=== PATIENT | male | born 1960 | race Asian ===

== ENCOUNTER 2017-09-06 09:15 | Day surgery (SDC) | payer OTHER ==
[~2017-09-06 09:15] MED LIST: Buffered Lidocaine 0.9% SYRIN* 5 ML/SYR SYRINGE INTRADERM ONE; Famotidine IV* 10 MG/ML 2 ML (20 mg) IV ONE
[2017-09-06] MEDS ORDERED: Famotidine IV* 10 MG/ML 2 ML (20 mg) ONE (10:07)
[2017-09-06] MEDS ORDERED: Buffered Lidocaine 0.9% SYRIN* 5 ML/SYR SYRINGE ONE (10:07)
[2017-09-06] MEDS ORDERED: ceFAZolin 2 GM PREMIX (*) 2 GM/50 ML BAG IVPB ONE (10:07)
[2017-09-06] MEDS ORDERED: Ondansetron INJ* 2 MG/ML VIAL IV PRN (10:32)
[2017-09-06] MEDS ORDERED: Naloxone* 0.4 MG/ML 1 ML VIAL IV PRN (10:32)
[2017-09-06] MEDS ORDERED: HYDROmorphone INJ* 1 MG/ML CARPUJECT SYRINGE IV PRN (10:32)
[2017-09-06] MEDS ORDERED: Acetaminophen TAB* 325 MG PO PRN (10:32)
[2017-09-06] MEDS ORDERED: oxyCODONE TAB* 5 MG TAB PO PRN (10:32)
[2017-09-06] MEDS ORDERED: EPINEPHRINE 1 MG/ML 1 ML VIAL ONE (11:06)
[2017-09-06] MEDS ORDERED: Lidocain 1% EPI 1:100,000 * 30 ML MDV ONE (11:06)
[2017-09-06] MEDS ORDERED: Bupivacaine 0.5% SDV PF* 30ML VIAL ONE (11:06)
[2017-09-06] MEDS ORDERED: fentaNYL* 50 MCG/ML 2 ML VIAL (100 MCG VIAL) ONE ×2 (11:15→13:12)
[2017-09-06] MEDS ORDERED: Midazolam* 1 MG/ML 5 ML VIAL (5 MG) ONE (11:15)
[2017-09-06] MEDS ORDERED: Ketorolac INJ* 30 MG/ML 1 ML VIAL ONE (11:28)
[2017-09-06] MEDS ORDERED: Dexamethasone IV* 4 MG/ML 1 ML (4 MG) ONE (11:28)
[2017-09-06] MEDS ORDERED: Propofol* 10 MG/ML 20 ML BTL IV PUSH ONE (11:28)
[2017-09-06] MEDS ORDERED: Lidocaine 2% PF * 5 ML VIAL ONE (11:28)
[2017-09-06] MEDS ORDERED: DiMENhydriNATE IV* 50 MG/ML VIAL ONE (11:28)
[2017-09-06 14:44] VITALS: BP 166/95
--- NOTE | 2017-09-09 00:34 | OP ---
DATE OF OPERATION: 09/06/17 - SDS DATE OF : 58 SURGEON: Kevin Severino MD CONDUIT INSTALLER: SELENE Jean. A physician intellectual property legal assistant was required for the length of the procedure for assistance with manipulation of the knee, instrumentation and closure. ANESTHESIOLOGIST: Carito Medina MD ANESTHESIA: General anesthesia, local anesthesia with 25 cc of 0.5% Marcaine without epinephrine. PRE-OP DIAGNOSES: 1. Left knee medial meniscus tear. 2. Left knee osteochondral lesion, medial femoral condyle. 3. Left knee mild osteoarthritis. POST-OP DIAGNOSES: 1. Left knee medial meniscus tear. 2. Left knee chondral injury, medial femoral condyle. 3. Left knee mild osteoarthritis. OPERATIVE PROCEDURE: 1. Left knee arthroscopic partial medial meniscectomy. 2. Left knee arthroscopic chondroplasty, medial femoral condyle. 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 See my preoperative clinic note for full details, but the patient responded insufficiently to a full array of nonoperative management including cortisone injection, home exercises, physical therapy, NSAIDs. The patient was missing work because of the pain and the pain was continuing to bother him with activities of daily living. The patient opted for surgery. Preoperative MRI showed a medial meniscus tear, complex. It also showed some chondral injury with subchondral bony edema in the medial femoral condyle. X-rays had showed some mild joint space narrowing of the medial lateral compartments. Using a packaging mechanic in the office, we discussed with the patient risks and potential complications of surgery including bleeding, infection, nerve or blood vessel injury, knee pain, stiffness, osteoarthritis. Given the patient's mild osteoarthritis and subchondral edema, there were possibly limits to the improvement with partial medial meniscectomy. Preoperatively, considered possible treatments for articular cartilage injury to the medial femoral condyle, I have decided on chondroplasty versus microfracture even if a full thickness injury was present. Because of the patient's age, presence of arthritis, mild, and the patient's presumed difficulty with being nonweightbearing for six weeks should that be needed. TOURNIQUET TIME: 23 minutes at 300 mmHg. QQNT-GJ-JRJD TIME: 21 minutes. ANTIBIOTICS: Ancef 2 g IV. IV FLUIDS: 700 cc crystalloid. ARTHROSCOPY FLUID: Not recorded volume. SPECIMEN: None. IMPLANTS: None. COMPLICATIONS: None. ESTIMATED BLOOD LOSS: Minimal. DESCRIPTION OF PROCEDURE: The patient signed a written consent in the preoperative holding with the use of a packaging mechanic. Operative extremity was marked in preoperative holding. The patient was taken back to the operating room and placed supine on operating room table. The patient was sedated and intubated. Tourniquet was placed about the proximal left thigh. A circumferential thigh gonzalez was placed about the distal left thigh. Left knee and lower extremity were prepped and draped. Surgical time-out was performed. Esmarch was applied and tourniquet was elevated to 300 mmHg. I established an anterolateral arthroscopy portal. I commenced my diagnostic arthroscopy. No patellofemoral articular cartilage lesions were encountered. I next dropped down to the medial compartment. Immediately, a soft, complex shaped medial meniscus tear about the posterior body and posterior horn. There was a one clear flap most anteriorly that might displace the most in the patient , a small parrot beak tear, there was also some fraying of the articular cartilage, some softening and fraying of that. I continued my diagnostic arthroscopy, I moved to the intercondylar notch. I debrided some synovitis anteriorly but the ACL and PCL were intact. Lateral compartment showed no articular cartilage or meniscus injury. I returned to the medial compartment. I debrided the meniscus tear back to a stable rim of tissue. I did so, working through the anteromedial and then the anterolateral portal. There was one spot about the posterior body to the posterior horn junction, as seen on MRI, that was close to full thickness. I also addressed the articular cartilage at the medial femoral condyle. I debrided with my arthroscopic shaver some areas of presumed loosening of the articular cartilage. I probed. There was softening but there was no area of complete thickness articular cartilage loss. There were areas of partial thickness articular cartilage loss. While it did generally not appear healthy, the grade of the articular cartilage injury I would describe it as grade 1 to 3 about the central aspect of the medial femoral condyle, weightbearing. I debrided this area and probed it from both the anterolateral and anteromedial portals. I returned to the patellofemoral compartment where I found no articular cartilage lesions or any loose bodies in the suprapatellar pouch nor in the popliteal hiatus. I removed the instruments and fluid from the knee. I closed the skin incisions with [id number]-[id number] stitches using nylon 4-0 suture. I injected 25 cc of 0.5% Marcaine without epinephrine in the subcutaneous tissues about the skin incisions. Xeroform, 4x4s, ABD, Juan C bandage from foot to proximal thigh. Icing unit was applied over the knee. The tourniquet was dropped. The patient was extubated and transferred to the PACU. DISPOSITION: The patient was discharged home with prescription for Percocet as well as a prescription for aspirin b.i.d. x 2 weeks for DVT prophylaxis. The patient will follow up with me in 10 to 14 days postoperatively. The patient was given wound care instructions. The patient will start physical therapy immediately as soon as he can postoperatively to reestablish range of motion and strengthening of that left knee. [id number] #: [id number] MTDD
== END 2017-09-06 15:09 | disposition home or self-care (01) ==
LOC: OR 09:15
PROVIDERS: ATTEND Orthopaedic Surgery
DX: S83.242A Other tear of medial meniscus, current injury, left knee, initial encounter (principal); M25.862 Other specified joint disorders, left knee; M25.562 Pain in left knee; M17.12 Unilateral primary osteoarthritis, left knee; Z72.0 Tobacco use; N40.0 Benign prostatic hyperplasia without lower urinary tract symptoms; W19.XXXA Unspecified fall, initial encounter; Y92.9 Unspecified place or not applicable
CPT/HCPCS: J0690; J1100; J1240; J1885; J2250; J2704; J3010

== ENCOUNTER 2018-07-10 10:18 | Emergency (ER) | payer OTHER ==
--- OUTSIDE RECORDS SUMMARY | 2018-07-10 10:25 | XMS REPORT | Continuity of Care Document ---
:1960 External Reference #:[id number] Author Name JimenezIsaiasSol Care Team Providers Name Role Phone Isael Hill MD Primary Care Physician Unavailable Payers Date Identification Numbers Payment Provider Subscriber Policy Number: [id number] [employer] Jeffrey [employer] Group Number: [id number] [address] PayID: [id number] [place] [address] Effective: 2017 Policy Number: [id number] Atiya Nova Onset: 2017 Group Name: [employer] [phone] [address] PayID: [place] [address] Advance Directives Description No Information Available Problems Date Description Provider Status Onset: 05/23/2017 Current tear of medial cartilage Kevin Severino MD Active AND/OR meniscus of knee Onset: 05/23/2017 Localized, primary osteoarthritis Kevin Severino MD Active Family History Description No Information Available Social History Type Date Description Comments Sex Unknown Occupation Currently Working ETOH Use Denies alcohol use Tobacco Use Start: Unknown Patient has never smoked Smoking Status Reviewed: 06/26/18 Patient has never smoked Exercise Type/Frequency Exercises sporadically Allergies, Adverse Reactions, Alerts Description No Known Drug Allergies Medications Medication Date Status Form Strength Qnty SIG Indications Ordering Provider Aleve / Active Capsules 220mg 1-2 by Unknown 0000 mouth twice a day as needed Naproxen 10/08/ Hx Tablets 500mg 30tabs take one Kevin Sanchez 2017 - tab by [facility], 10/30/ mouth 2017 twice a day with food Aspirin Ec 09/08/ Hx Tablets DR 325mg 28tabs 1 tablet Kevin Sanchez 2017 - by mouth Mere, 06/25/ twice 2018 daily for 14 days Percocet 09/06/ Hx Tablets 5-325mg 30tabs 1 - 2 Kevin F 2018 - tabs by [facility]re, 09/15/ mouth 2017 every 4 - 6 hours as needed for pain. Naproxen DR 07/08/ Hx Tablets DR 500mg 90tabs take 1 Kevin F 2018 - tab [facility]re, 03/10/ every 12 MD 2018 hours x 2 weeks. then as needed No Active 05/23/ Hx Unknown Medications 2017 - 2017 Cyclobenzaprine / Hx Tablets 5mg take one Unknown HCL 0000 - tablet 05/29/ by mouth 2018 every 8 hours prn. may take a second tablet if first not effetive . Allopurinol / Hx Tablets 100mg 1 by Unknown 0000 - mouth 05/29/ 2018 day Medications Administered in Office Medication Date Status Form Strength Qnty SIG Indications Ordering Provider Depomedrol Administered Injection Kevin F 40MG 019 MD Mere Depomedrol Administered Injection Frances 40MG 018 MARIA A Rollins Depomedrol Administered Injection Kevin F 40MG 018 MD Mere Immunizations Description No Information Available Vital Signs Date Vital Result Comment 06/26/2018 9:05am Height 62 inches 5'2" Weight 155.00 lb Heart Rate 70 /min BP Systolic 142 mmHg BP Diastolic 80 mmHg Respiratory Rate 12 /min Pain Level 3 BMI (Body Mass Index) 28.3 kg/m2 05/29/2018 3:12pm Height 62 inches 5'2" Weight 150.00 lb BP Systolic 150 mmHg BP Diastolic 100 mmHg Pain Level 6 BMI (Body Mass Index) 27.4 kg/m2 05/15/2018 2:18pm Height 62 inches 5'2" Heart Rate 76 /min BP Systolic 150 mmHg BP Diastolic 92 mmHg Body Temperature 98.5 F Pain Level 6 03/11/2018 9:57am Height 62 inches 5'2" Weight 150.00 lb BP Systolic 148 mmHg BP Diastolic 86 mmHg Respiratory Rate 18 /min Pain Level 5 BMI (Body Mass Index) 27.4 kg/m2 01/02/2018 11:14am Heart Rate 92 /min BP Systolic 156 mmHg BP Diastolic 86 mmHg Respiratory Rate 18 /min Pain Level 4 12/05/2017 10:32am Height 62 inches 5'2" Heart Rate 96 /min BP Systolic 130 mmHg BP Diastolic 90 mmHg Body Temperature 98.3 F Pain Level 4 10/31/2017 8:45am Height 62 inches 5'2" Weight 146.00 lb Heart Rate 79 /min Respiratory Rate 16 /min Pain Level 2 BMI (Body Mass Index) 26.7 kg/m2 10/08/2017 7:55am Height 62 inches 5'2" Weight 146.00 lb BP Systolic 124 mmHg BP Diastolic 80 mmHg Respiratory Rate 18 /min Pain Level 2 BMI (Body Mass Index) 26.7 kg/m2 09/16/2017 2:16pm Height 62 inches 5'2" Weight 146.00 lb Heart Rate 80 /min BP Systolic 148 mmHg BP Diastolic 78 mmHg Respiratory Rate 16 /min Pain Level 7 BMI (Body Mass Index) 26.7 kg/m2 08/13/2017 10:42am Height 62 inches 5'2" Weight 146.00 lb BP Systolic Sitting 142 mmHg BP Diastolic Sitting 90 mmHg Respiratory Rate 16 /min Body Temperature 98.2 F Pain Level 6 BMI (Body Mass Index) 26.7 kg/m2 07/18/2017 1:06pm Height 62 inches 5'2" Weight 146.00 lb Heart Rate 69 /min Respiratory Rate 16 /min Pain Level 2 BMI (Body Mass Index) 26.7 kg/m2 07/08/2017 1:02pm Height 62 inches 5'2" Weight 146.00 lb Heart Rate 67 /min Respiratory Rate 16 /min Pain Level 2 BMI (Body Mass Index) 26.7 kg/m2 05/27/2017 1:03pm Height 62 inches 5'2" Heart Rate 81 /min BP Systolic 132 mmHg BP Diastolic 80 mmHg Respiratory Rate 16 /min Body Temperature 97.8 F Pain Level 7 05/23/2017 10:05am Height 62 inches 5'2" Weight 146.00 lb BP Systolic 142 mmHg BP Diastolic 84 mmHg Respiratory Rate 15 /min Pain Level 10 BMI (Body Mass Index) 26.7 kg/m2 Results Description No Information Available Procedures Date Code Description Status 05/29/201878001 Inject/Drain Joint/Bursa Major W/O US Completed 12/05/2017 Inject/Drain Joint/Bursa Major W/O US Completed 10/28/2017 87793 Colonoscopy Flexible W/Biopsy Completed 10/28/2017 23788175 Colonoscopy Completed 09/06/2017 97197 Arthroscopy,Knee,Meniscectomy Medial Or Lateral Completed 09/06/2017 70755 Arthroscopy,Knee,Meniscectomy Medial Or Lateral Completed 05/23/2017 78597 Inject/Drain Joint/Bursa Major W/O US Completed Encounters Type Date Location Provider Dx Diagnosis Office Visit 05/29/2018 Orthopedic Kevin Sanchez [id number] Complex tear of 3:[facility] Severino MD medial mensc, current injury, l knee, subs M17.12 Unilateral primary osteoarthritis, left knee Office Visit 05/15/2018 1:45p Orthopedic Kevin Sanchez [id number] Complex tear [facility] of medial [facility] mensc, current injury, l knee, subs M25.562 Pain in left knee M17.12 Unilateral primary osteoarthritis, left knee Office Visit 03/11/2018 10:00a Orthopedic Kevin Sanchez [id number] Complex tear [facility] of medial [facility] mensc, current injury, l knee, subs Office Visit 01/02/2018 11:30a Orthopedic Kevin Sanchez [id number] Oth tear of [facility] medial [facility] meniscus, current injury, left knee, subs [id number] Complex tear of medial mensc, current injury, l knee, subs Plan of Treatment Future Appointment(s):07/04/2018 8:45 am - MAR[facility] A Ramirez [facility]06/26/2018 - Kevin Severino [id number] Complex tear of medial meniscus, current injury, left knee,Follow up:Follow up: in 1 week with a PA for injection #2 of NhjoncwQ89.12 Unilateral primary osteoarthritis, left kneeM25.562 Pain in left knee
[2018-07-10 11:09] VITALS: BP 146/94
--- NOTE | 2018-07-10 11:20 | UC ---
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 Pain started about 4 weeks ago, but worsened considerably with the above associated sx last week. Denies known external inciting issue(s). Sleeps on a regular mattress. Unknown if fever - has been taking around the clock naproxen for Left knee pain (scheduled for upcoming knee surgery), also norco for knee pain. These medications have not helped neck pain. Came to [facility] today because he couldn't stand the pain any more. No h/a, sob / cp / palpitations. No GI issues. no b/b issues reported. No rash. No vis / aud issues reported. - History of Current Complaint Chief Complaint: UCUpperExtremity Stated Complaint: L ARM COMPLAINT Hx Obtained From: Patient, Family/Bar Useful Or Busser, Manager Scientific Pain Intensity: 5 - Allergy/Home Medications Allergies/Adverse Reactions: Allergies Allergy/AdvReac Type Severity Reaction Status Date / Time No Known Allergies Allergy Verified 07/10/18 11:24 PMH/Surg Hx/FS Hx/Imm Hx Previously Healthy: No - see hpi - Surgical History Surgical History: Yes Surgery Procedure, Year, and Place: LEFT KNEE SURGERY - Family History Known Family History: Negative: Cardiac Disease, Hypertension, Diabetes - Social History Alcohol Use: None Substance Use Type: None Smoking Status (MU): Former Smoker Type: Cigarettes Amount Used/How Often: 1 pack every 3 days for 30 years Review of Systems All Other Systems Reviewed And Are Negative: Yes Constitutional: Positive: Other - see hpi Skin: Positive: Other - see hpi Eyes: Positive: Other - see hpi ENT: Positive: Other - see hpi Respiratory: Positive: Other - see hpi Cardiovascular: Positive: Other - see hpi Gastrointestinal: Positive: Other - see hpi Genitourinary: Positive: Other - see hpi Motor: Positive: Other - see hpi Neurovascular: Positive: Other - see hpi Musculoskeletal: Positive: Other: - see hpi Neurological: Positive: Other - see hpi Psychological: Positive: Negative Is Patient Immunocompromised?: No Physical Exam Triage Information Reviewed: Yes Appearance: Well-Nourished Vital Signs: Initial Vital Signs Temp 98.4 F 07/10/18 11:03 Pulse 79 07/10/18 11:03 Resp 16 07/10/18 11:03 BP 146/94 07/10/18 11:03 Pulse Ox 98 07/10/18 11:03 Vital Signs Reviewed: Yes Eye Exam: Normal ENT Exam: Normal - grossly normal. MMM. Neck exam: Other Respiratory: Positive: Lungs clear, Normal breath sounds, No respiratory distress, No accessory muscle use Cardiovascular: Positive: RRR, Pulses Normal, Brisk Capillary Refill Abdominal Exam: Normal Abdomen Description: Positive: Nontender Musculoskeletal Exam: Other - Tender from mid neck to upper thoracic spine, approx c4-4 -> T6-8. Tender part Left lateral spine area. + upper back and neck spasm. Ax N. LT - + both sides, but pt subjectively reports that he feels it stronger in the R shoulder. + dysesthesia L fingers x 5, able to do "ok" index and 5th fingers both sides ok. Elbow flexion and extension 4+ Left , 5 Right. Palpable R/u pulses bilat. R / BR 1+ bilat. 2+ R knee, did not test L knee d/t pain (pt request). Able to ambulate ok. Neurological Exam: Other Psychological Exam: Normal - conversing easily and appropriately. 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 Skin Exam: Normal - no visible or reported rash. Course/Dx - Course Course Of Treatment: Reviewed recent reports in [facility] as avaiable. + knee issues. However, no recent neck imaging / testing. Today with progressively worse LUE weakness and dysesthesias, in the setting of severe neck pain, not improved with nsaid / norco (or similar). Unk if hx fever d/t antipyretic effect of nsaid. Declines cervical collar. Will send to ED, he and conveyor installer decline EMS, conveyor installer will drive. I called ED, spoke with SELENE Stovall, at time of pt d/c. Questions as posed answered to the best of my ability. - Diagnoses Provider Diagnosis: Neck pain, Weakness Discharge - Sign-Out/Discharge Documenting (check all that apply): Patient Departure All imaging exams completed and their final reports reviewed: No Studies - Discharge Plan Condition: Guarded Disposition: HOME-RECOMMEND TO ED Patient Education Materials: Weakness (ED), Acute Neck Pain (ED) Referrals: Isael Hill MD [Primary Care Provider] - Additional Instructions: Please go to the Emergency Department. Stop and call 911 if problems en route. Follow up with you primary care physician, as soon as possible. - Billing Disposition and Condition Condition: GUARDED Disposition: Home-Recommend to ED
== END 2018-07-10 11:59 | disposition home health service (06) ==
LOC: UCEAST 10:18
DX: M54.2 Cervicalgia (principal); R53.1 Weakness; R20.8 Other disturbances of skin sensation; M25.562 Pain in left knee; Z87.891 Personal history of nicotine dependence
CPT/HCPCS: 99212; G0463

== ENCOUNTER → 2018-07-10 14:17 | Emergency (ER) | payer OTHER ==
[~2018-07-10 14:17] MED LIST changes: -Buffered Lidocaine 0.9% SYRIN* 5 ML/SYR SYRINGE INTRADERM ONE; -Famotidine IV* 10 MG/ML 2 ML (20 mg) IV ONE; +Ketorolac INJ* 30 MG/ML 1 ML VIAL IM ONE; +predniSONE TAB* 20 MG PO ONE
--- NOTE | 2018-07-10 15:20 | ED ---
Back Pain - HPI Summary HPI Summary: A 57 y/o male presents to [facility] with a chief complaint of left sided back pain radiating to his shoulder for a week. He also notes numbness in his left arm. He rates his pain as a 5/10 in severity. The patient was at and was sent to the ED for further workup. SHx: knee surgery in July 2017. - History of Current Complaint Chief Complaint: EDBackInjuryPain Stated Complaint: BACK PAIN/LEFT ARM PAIN PER PT Time Seen by Provider: 07/10/18 15:03 Hx Obtained From: Patient Onset/Duration: Sudden Onset, Lasting Days, Still Present Onset/Duration: Started Days Ago, Still Present Timing: Constant Back Pain Location: Radiates To - left shoulder and left arm Severity Initially: Moderate Severity Currently: Moderate Pain Intensity: 5 Pain Scale Used: 0-10 Numeric Character: Unable to Describe Aggravating Symptom(s): Nothing Alleviating Symptom(s): Nothing Associated Signs And Symptoms: Positive: Numbness. Negative: Fever - Allergies/Home Medications Allergies/Adverse Reactions: Allergies Allergy/AdvReac Type Severity Reaction Status Date / Time No Known Allergies Allergy Verified 07/10/18 14:26 Home Medications: Home Medications Acetaminophen [Tylenol] 325 - 650 mg PO Q6H PRN 07/10/18 [History Confirmed ] PMH/Surg Hx/FS Hx/Imm Hx Endocrine/Hematology History: Denies: Hx Diabetes, Hx Thyroid Disease Cardiovascular History: Denies: Hx Hypertension, Hx Pacemaker/ICD Respiratory History: Denies: Hx Asthma, Hx Chronic Obstructive Pulmonary Disease (COPD) GI History: Denies: Hx Ulcer History: Reports: Other Problems/Disorders - BPH - followed by dr hill Denies: Hx Renal Disease Musculoskeletal History: Reports: Hx Arthritis, Other Musculoskeletal History - left knee meniscus tear Sensory History: Reports: Hx Contacts or Glasses - readers Denies: Hx Hearing Aid Opthamlomology History: Reports: Hx Contacts or Glasses - readers Psychiatric History: Denies: Hx Panic Disorder - Surgical History Surgery Procedure, Year, and Place: LEFT KNEE SURGERY Hx Anesthesia Reactions: No - never had surgery Infectious Disease History: No Infectious Disease History: Denies: Hx Clostridium Difficile, Hx Hepatitis, Hx Human Immunodeficiency Virus (HIV), Hx of Known/Suspected MRSA, Hx Shingles, Hx Tuberculosis, History Other Infectious Disease, Traveled Outside the [place] in Last 30 Days - Family History Known Family History: Negative: Cardiac Disease, Hypertension, Diabetes - Social History Alcohol Use: None Substance Use Type: Reports: None Smoking Status (MU): Former Smoker Type: Cigarettes Amount Used/How Often: 1 pack every 3 days for 30 years Review of Systems Negative: Fever Positive: Arthralgia - left shoulder pain, Myalgia - left back pain Positive: Numbness - left arm All Other Systems Reviewed And Are Negative: Yes Physical Exam - Summary Physical Exam Summary: Appearance: The patient is well-nourished in no acute distress and in no acute pain. Skin: The skin is warm and dry and skin color reflects adequate perfusion. HEENT: The head is normocephalic and atraumatic. The pupils are equal and reactive. The conjunctivae are clear and without drainage. Nares are patent and without drainage. Mouth reveals moist mucous membranes and the throat is without erythema and exudate. The external ears are intact. The ear canals are patent and without drainage. The tympanic membranes are intact. Neck: The neck is supple with full range of motion and non-tender. There are no carotid bruits. There is no neck vein distension. Respiratory: Chest is non-tender. Lungs are clear to auscultation and breath sounds are symmetrical and equal. Cardiovascular: Heart is regular rate and rhythm. There is no murmur or rub auscultated. There is no peripheral edema and pulses are symmetrical and equal. Abdomen: The abdomen is soft and non-tender. There are normal bowel sounds heard in all four quadrants and there is no organomegaly palpated. Musculoskeletal: Tender rhomboid area and trapezius. Good strength. Extremities are non-tender with full range of motion. There is good capillary refill. There is no peripheral edema or calf tenderness elicited. Neurological: Patient is alert and oriented to person, place and time. The patient has symmetrical motor strength in all four extremities. Cranial nerves are grossly intact. Deep tendon reflexes are symmetrical and equal in all four extremities. Psychiatric: The patient has an appropriate affect and does not exhibit any anxiety or depression. Triage Information Reviewed: Yes Vital Signs On Initial Exam: Initial Vitals Temp Pulse Resp BP Pulse Ox 98.6 F 85 16 165/95 98 07/10/18 14:20 07/10/18 14:20 07/10/18 14:20 07/10/18 14:20 07/10/18 14:20 Vital Signs Reviewed: Yes Diagnostics - Vital Signs Vital Signs Temp Pulse Resp BP Pulse Ox 07/10/18 14:20 98.6 F 85 16 165/95 98 - Laboratory Lab Statement: Any lab studies that have been ordered have been reviewed, and results considered in the medical decision making process. - CT Cervical spine CT Interpretation Completed By: Radiologist Summary of CT Findings: 1. STRAIGHTENING AND REVERSAL OF THE NORMAL CERVICAL LORDOSIS. 2. THERE IS MILD TO MODERATE CERVICAL SPONDYLOSIS WITH SUGGESTION OF DISC PROTRUSIONS AT. THE C4-C5 AND C6-C7 LEVELS WHICH ARE NOT WELL-DEFINED ON THE CT IMAGES. CONSIDER [facility] FOR FURTHER EVALUATION. ED physician has reviewed this imaging report. Re-Evaluation - Re-Evaluation First Eval Re-Evaluation Time: 16:35 Change: Improved Comment: Discussed results. Pt is ready for DC. Back Pain Course/Dx - Course Course Of Treatment: Mr. Nova presented with very significant pain in his left arm and some numbness but no motor difficulties. He denied any other involvement. He was very tender in his rhomboid area and trapezius and a CT of his neck showed diffuse disc disease. He will likely need an MRI scan; I'm going to try to give him some symptomatic relief with steroids and anti- inflammatories. He did get some relief with anti-inflammatories a here in the ED. I recommended close follow-up with his PCP. - Diagnoses Provider Diagnoses: Cervical radiculopathy Discharge - Sign-Out/Discharge Documenting (check all that apply): Patient Departure - DC Patient Received Moderate/Deep Sedation with Procedure: No - Discharge Plan Condition: Stable Disposition: HOME Prescriptions: methylPREDNISolone [Medrol Dosepak 4 MG*] 4 mg PO .SEE FRED INSTRUCTION #1 tab Patient Education Materials: Cervical Radiculopathy (ED) Referrals: Isael Hill MD [Primary Care Provider] - (2-3 days ) Additional Instructions: Recommend Naprosyn. Follow up with Dr. Hill for consideration of MRI scan. - Billing Disposition and Condition Condition: STABLE Disposition: Home - Attestation Statements Document Initiated by Scribe: Yes Documenting Scribe: Adam Wiggins Provider For Whom Scribe is Documenting (Include Credential): Renard Davis MD Scribe Attestation: I, Adam Wiggins, scribed for Renard Davis MD on 07/10/18 at 1854. Scribe Documentation Reviewed: Yes Provider Attestation: The documentation as recorded by the scribe, Adam Wiggins accurately reflects the service I personally performed and the decisions made by me, Renard Davis MD Status of Scribe Document: Viewed
[2018-07-10 16:45] VITALS: BP 131/72
== END | disposition home or self-care (01) ==
LOC: ED 14:17
DX: M54.12 Radiculopathy, cervical region (principal); Z87.891 Personal history of nicotine dependence
CPT/HCPCS: 72125; 96372; 99282; J1885

== ENCOUNTER 2018-10-22 07:30 | Inpatient (IN) | payer OTHER ==
--- NOTE | 2018-10-13 16:56 | HP ---
PREOPERATIVE HISTORY AND PHYSICAL: DATE OF ADMISSION: 10/29/18 DATE OF OFFICE VISIT/ENCOUNTER: 10/09/18 ATTENDING SURGEON: Kevin Severino MD.* (DICTATED BY SELENE COLEMAN) PROCEDURE: Left knee medial unicompartmental knee arthroplasty using NAVIO. HISTORY OF PRESENT ILLNESS: This is a 58-year-old male who has medial compartment degenerative changes of his left knee. He speaks Laotian. In August 2017, he underwent a left knee arthroscopic partial medial meniscectomy and chondroplasty. Over the past year, he has failed conservative treatment including cortisone injections and physical therapy as well as viscosupplementation. Unfortunately, none of these previous treatments have helped his knee pain. 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 This is a Workers Comp case. Because previous arthroscopic surgery and other conservative measures have failed, the patient has now consented to proceed with surgical intervention. He is scheduled to undergo a left knee medial unicompartmental knee arthroplasty using NAVIO. His primary care physician is Dr. Hill and he will get medical clearance prior to proceeding with surgery. PAST MEDICAL HISTORY: 1. Gout. 2. Osteoarthritis. PAST SURGICAL HISTORY: Left knee arthroscopy. CURRENT MEDICATIONS: 1. Aleve 220 mg b.i.d. p.r.n. 2. Tylenol p.r.n. ALLERGIES: No known drug allergies. FAMILY MEDICAL HISTORY: Noncontributory. 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 He is a former smoker. He quit 1 year ago; prior to that, he smoked for 15 years. He went through a pack every 3 days. He denies recreational drug use and does not drink alcohol. REVIEW OF SYSTEMS: Negative for general, cephalic, cardiovascular, respiratory , GI, , other musculoskeletal, integumentary, endocrine, neurologic and hematologic symptoms. Infectious Disease: Negative for MRSA, hepatitis C, and HIV. PHYSICAL EXAMINATION GENERAL: Well-developed, well-nourished 58-year-old male, in no acute distress. VITAL SIGNS: Height 5 feet 2 inches, weight 150 pounds. Pulse rate 76, blood pressure 138/90. HEENT: Normocephalic, atraumatic. Pupils are equal, round, and reactive to light and accommodation. Extraocular movements are intact. Throat is clear. NECK: Supple. No palpable lymph nodes. CARDIOVASCULAR: Regular rate and rhythm. S1, S2. No murmurs, rubs, or gallops. No edema. PULMONARY: Lungs are clear to auscultation bilaterally. No wheezes, rales, or rhonchi. ABDOMEN: Positive bowel sounds, soft and nontender. NEUROLOGIC: Alert and oriented x3. Cranial nerves II through XII are intact. Sensation is intact to light touch. MUSCULOSKELETAL: The left knee exam shows a mild joint effusion. He has passive range of motion from 0 to 130 degrees of flexion. Medial knee pain with terminal extension and flexion. Positive medial joint line tenderness to palpation. Positive medial pain with Dillan's testing. No pain or increased laxity with ligamentous stress testing. Neurovascular function is intact. IMAGING STUDIES: X-ray and MRI of the left knee showed degenerative changes in the medial compartment, but no clear degenerative changes of significance in the patellofemoral or lateral compartment. IMPRESSION: Left knee medial compartment osteoarthritis. PLAN: The patient is scheduled to undergo a left knee medial unicompartmental knee arthroplasty using NAVIO with Dr. Severino on 10/29/18. He will return to the office 2 weeks postoperative for followup and suture removal. Risks and benefits of surgery were reviewed with the patient via Dr. Severino and all of their questions were answered. SELENE COLEMAN [id number]/[facility] #: [id number] [place]
[2018-10-28] MEDS ORDERED: Buffered Lidocaine 1% SYRIN* 1 ML/SYRINGE INTRADERM ONE (11:34)
[2018-10-29] MEDS ORDERED: Tranexamic Acid 1,000 MG in NS 0.9% 50 ML* (outpatient use) IV SCH ×2
[2018-10-29] MEDS ORDERED: Lactated Ringers 1000 ML Bag* 1,000 ML IV SCH (06:00)
[2018-10-29] MEDS ORDERED: Dexamethasone IV* 4 MG/ML 1 ML (4 MG) IV SLOW PU ONE (06:00)
[2018-10-29] MEDS ORDERED: Famotidine IV* 10 MG/ML 2 ML (20 mg) IV ONE (06:00)
[2018-10-29] MEDS ORDERED: Gabapentin CAP(*) 300 MG PO ONE (06:00)
[2018-10-29] MEDS ORDERED: Acetaminophen IV 1GM/100ML * 1,000 MG/100 ML VIAL IVPB ONE (06:00)
[2018-10-29] MEDS ORDERED: celeCOXIB CAP* 200 MG PO ONE (06:00)
--- OUTSIDE RECORDS SUMMARY | 2018-10-29 07:14 | XMS REPORT | Continuity of Care Document ---
:1960 External Reference #:[id number] Author Name Isael Hill M.D. 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 Onset: 10/10/2018 Adult health examination Isael Hill M.D. Onset: 09/19/2017 Essential hypertension Isael Hill M.D. Onset: 09/19/2017 Encounter for other preprocedural Isael Hill M.D. Onset: 08/24/2017 examination Chest pain Isael Hill M.D. Onset: 08/12/2017 Knee pain Isael Hill M.D. Onset: 08/12/2017 Chronic gouty arthritis Isael Hill M.D. Onset: 08/12/2017 Pain in limb Isael Hill M.D. Onset: 08/12/2017 Gout Isael Hill M.D. Onset: 08/02/2017 Benign prostatic hypertrophy without outflow Isael Hill M.D. Onset: obstruction Degenerative joint disease involving Isael Hill M.D. Onset: 04/08/2015 multiple joints Family History Date Family Member(s) Observation Comments General no colon or prostate cancer Father Hypertension Father Cerebrovascular Accident (CVA) age 76 Social History Type Date Description Comments Sex Unknown [facility] [place] Tobacco Use Start: Unknown End: Former Cigarette Smoker 1/2 Pack Daily Smoking Status Reviewed: 09/30/17 Former Cigarette Smoker 1/2 Pack Daily ETOH Use Social Alcohol Tobacco Use Start: Unknown Patient is a current smoker, smokes every day Allergies, Adverse Reactions, Alerts Description No Known Drug Allergies Medications Active Medications SIG Qnty Indications Ordering Provider Date No Active Medications Unknown 10/10/2018 History Medications Medrol as directed 1units Tom Mittal 07/28/2018 - 4mg TBPK MD Amanda 10/10/2018 Gabapentin 1-2 by mouth 120caps M50.10 Kelsy Marshall 07/18/2018 - 300mg Capsules three times CHARU Saenz 10/10/2018 daily for Daytime Pain Meloxicam 1 by mouth every 60tabs M50.10 Kelsy Marshall 07/18/2018 - 15mg Tablets day until pain CHARU Saenz 10/10/2018 resolves Oxycodone-Acetaminophen 1-2 tab by mouth 20tabs M50.10 Kelsy Marshall 2018 - every 6 hours as CHARU Saenz 10/10/2018 5-325mg Tablets needed for severe pain Zanaflex take one by 30caps M54.9 Kelsy Marshall 05/14/2018 - 4mg Capsules mouth 3 times CHARU Saenz 07/18/2018 daily as needed for pain Diclofenac Sodium take 1 tablet by 30tabs M54.9 Kelsy Marshall 05/14/2018 - 50mg mouth three CHARU Saenz 07/18/[address] times a day as needed Magic Mouthwash 1/3 liquid 4Oz K13.79 Marianela 01/29/2018 - DONNY Gonzalez 07/18/2018 (12.5mg/5mL) 1/3 mom 1/3 viscous lidocaine (2%); swish/spit 2.5-5mL q 4 hrs prn pain Cyclobenzaprine HCL take 1-2 tablets 45tabs Radha Ann 09/30/2017 - 5mg by mouth at CHARU Carter 11/02/2017 Tablets night as needed for chest pain Allopurinol 1 by mouth every 90tabs Isaelmarium Goddard 09/19/2017 - 100mg Tablets day Manoj Hill 07/28/2018 Note should be out of Isael Goddard 08/12/2017 - work until Manoj Hill 08/24/2017Saturday08/19/17 Note out of work Isael Goddard 08/02/2017 - until Saturday Manoj Hill 08/24/2017 08/06/17 Naproxen take one by 30tabs M79.67 Isael Goddard 07/31/2017 - 500mg Tablets mouth twice 1 Manoj Hill 09/19/2017 daily as needed Meloxicam 1 by mouth every 30tabs M25.56 Kelsy Marshall 05/22/2017 - 15mg Tablets day until pain 2 CHARU Saenz 08/01/2017 resolves Out Of Work out of work Karen Grey, 01/03/2016 - since Dec.26 [employer] 04/24/2017 due to foot pain; 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 06/14/2008 - 500mg Tablets food x 10 days Manoj Haney 04/08/2015 Medrol Dosepak use as directed 1tabs 784.0 Satnam AToshia 06/14/2008 - 4mg Tablets Manoj Haney 04/08/2015 Augmentin 1 po bid with 20tabs 784.0 Hay A. 05/17/2008 - 500mg Tablets food x 10 days Manoj Haney 06/14/2008 Diclofenac Sodium 1 bid prn w/ Family Medicine 04/27/2008 - 75mg food for pain [facility] 05/17/[address] Sri King Vicodin 1-2 po q4-6h prn [facility] 04/27/2008 - 5-500mg [facility] 05/17/2008 Fernando Amoxicillin 1 po bid X10 [facility] 04/27/2008 - 875mg Tablets [facility] 04/27/2008 Fernando Biaxin 1 po bid 20tabs Jose Carlos T. Midura, 04/27/2008 - 500mg Tablets Manoj 05/17/2008 Ibuprofen 1 po tid prn 50tabs V70.0 Satnam Contreras 03/29/2008 - 600mg Tablets Manoj Haney 05/17/2008 Aspirin twice by mouth Unknown - 250mg Tablets every day 07/18/2018 Methylprednisolone as directed Unknown - 4mg 07/28/2018 Tablets Medications Administered in Office Medication SIG Qnty Indications Ordering Provider Date TB Intradermal Test Isael Hill M.D. 04/08/2015 Injection Immunizations CPT Code Status Date Vaccine Lot # [id number] Given 04/08/2015 Tdap Tetanus, W Pertussis [id number] Vital Signs Date Vital Result Comment 10/10/2018 3:59pm BP Systolic 132 mmHg BP Diastolic 92 mmHg Heart Rate 80 /min Body Temperature 98.2 F Height 62 inches 5'2" per patient Weight 149.56 lb BMI (Body Mass Index) 27.4 kg/m2 07/28/2018 3:06pm BP Systolic 110 mmHg BP Diastolic 78 mmHg Heart Rate 80 /min Body Temperature 98.2 F Respiratory Rate 20 /min Height 62 inches 5'2" per patient Weight 147.00 lb BMI (Body Mass Index) 26.9 kg/m2 07/18/2018 8:17am BP Systolic 156 mmHg BP Diastolic 82 mmHg Heart Rate 96 /min Body Temperature 98.1 F Respiratory Rate 16 /min Weight 152.00 lb 05/14/2018 12:58pm BP Systolic 144 mmHg BP Diastolic 70 mmHg Heart Rate 72 /min Body Temperature 98.8 F Respiratory Rate 20 /min Weight 159.00 lb 01/29/2018 1:47pm BP Systolic 140 mmHg BP Diastolic 88 mmHg Heart Rate 84 /min Body Temperature 98.2 F Respiratory Rate 20 /min Height 61.75 inches 5'1.75" Weight 155.00 lb BMI (Body Mass Index) 28.6 kg/m2 11/01/2017 11:58am BP Systolic 152 mmHg BP Diastolic 90 mmHg Heart Rate 94 /min Body Temperature 99.0 F Height 61.75 inches 5'1.75" Weight 147.00 lb BMI (Body Mass Index) 27.1 kg/m2 09/30/2017 6:56pm BP Systolic 120 mmHg BP Diastolic 72 mmHg Heart Rate 78 /min Body Temperature 98.8 F Respiratory Rate 16 /min Height 61.75 inches 5'1.75" Weight 150.00 lb BMI (Body Mass Index) 27.7 kg/m2 09/19/2017 10:03am BP Systolic 130 mmHg BP Diastolic 72 mmHg Heart Rate 84 /min Body Temperature 98.6 F Respiratory Rate 15 /min Height 61.75 inches 5'1.75" Weight 145.25 lb BMI (Body Mass Index) 26.8 kg/m2 08/24/2017 10:37am BP Systolic 132 mmHg BP Diastolic 96 mmHg Heart Rate 80 /min Body Temperature 98.6 F Height 61 inches 5'1" Weight 148.00 lb BMI (Body Mass Index) 28.0 kg/m2 08/12/2017 4:01pm BP Systolic 148 mmHg BP Diastolic 98 mmHg Heart Rate 76 /min Body Temperature 98.8 F Respiratory Rate 16 /min Height 61 inches 5'1" Weight 146.00 lb BMI (Body Mass Index) 27.6 kg/m2 08/02/2017 3:56pm BP Systolic 152 mmHg BP Diastolic 92 mmHg Heart Rate 96 /min Body Temperature 97.9 F Height 61 inches 5'1" 07/31/2017 3:13pm BP Systolic 110 mmHg BP Diastolic 80 mmHg Heart Rate 104 /min Body Temperature 97.7 F Height 61 inches 5'1" Weight 146.00 lb BMI (Body Mass Index) 27.6 kg/m2 05/22/2017 8:15am BP Systolic 122 mmHg BP Diastolic 76 mmHg Heart Rate 80 /min Body Temperature 98.1 F Respiratory Rate 16 /min Height 61 inches 5'1" Weight 146.00 lb BMI (Body Mass Index) 27.6 kg/m2 04/24/2017 8:55am BP Systolic 140 mmHg BP Diastolic 90 mmHg Heart Rate 88 /min Body Temperature 98.5 F Respiratory Rate 15 /min Height 61 inches 5'1" Weight 148.25 lb BMI (Body Mass Index) 28.0 kg/m2 06/04/2016 1:20pm BP Systolic 132 mmHg BP Diastolic 74 mmHg Heart Rate 84 /min Body Temperature 99.0 F Respiratory Rate 16 /min Height 61 inches 5'1" Weight 144.00 lb BMI (Body Mass Index) 27.2 kg/m2 05/31/2016 10:03am BP Systolic 130 mmHg BP Diastolic 76 mmHg Heart Rate 96 /min Body Temperature 99.3 F Height 61 inches 5'1" Weight 144.38 lb BMI (Body Mass Index) 27.3 kg/m2 12/29/2015 4:15pm BP Systolic 124 mmHg BP Diastolic 76 mmHg Heart Rate 84 /min Body Temperature 98.1 F Respiratory Rate 16 /min Height 61 inches 5'1" Weight 147.50 lb BMI (Body Mass Index) 27.9 kg/m2 04/08/2015 1:34pm BP Systolic 120 mmHg BP Diastolic 80 mmHg Heart Rate 72 /min Body Temperature 97.5 F Respiratory Rate 16 /min Height 61 inches 5'1" Weight 144.12 lb BMI (Body Mass Index) 27.2 kg/m2 06/28/2008 9:48am BP Systolic 122 mmHg BP Diastolic 80 mmHg Heart Rate 92 /min Body Temperature 99.1 F Respiratory Rate 16 /min Weight 148.00 lb 06/14/2008 10:52am BP Systolic 110 mmHg BP Diastolic 70 mmHg Heart Rate 76 /min Body Temperature 98.6 F Respiratory Rate 16 /min Weight 150.00 lb 05/17/2008 8:59am BP Systolic 118 mmHg BP Diastolic 70 mmHg Heart Rate 72 /min Body Temperature 98.2 F Respiratory Rate 18 /min Height 62.25 inches 5'2.25" Weight 149.00 lb BMI (Body Mass Index) 27.0 kg/m2 04/27/2008 8:05am BP Systolic 110 mmHg BP Diastolic 60 mmHg Heart Rate 72 /min Body Temperature 98.2 F Weight 148.00 lb 03/29/2008 10:48am BP Systolic 102 mmHg BP Diastolic 66 mmHg Heart Rate 80 /min Height 62 inches 5'2" Weight 150.00 lb BMI (Body Mass Index) 27.4 kg/m2 03/23/2008 2:29pm BP Systolic 96 mmHg BP Diastolic 60 mmHg Heart Rate 84 /min Height 62 inches 5'2" Weight 147.00 lb BMI (Body Mass Index) 26.9 kg/m2 Results Test Date Facility Test Result H/L Range Note Laboratory test 10/28/2017 [facility] SEE RESULT 1 finding Interface BELOW Order Laboratory test 10/01/2017 [facility] D[facility] Quant 257 ng/mL 0.0- 400 finding (607)- - (Fma) Laboratory test 08/12/2017 [facility] Reactive 3.09 mg/L N < 5.00 2 finding Protein Comprehensive 08/12/2017 [facility]) Sodium 141 mEq/L 134-149 Metabolic Prof Potassium 4.1 mEq/L 3.6-5.5 Chloride 103 mEq/L 94-112 Carbon Dioxide 24 mEq/L 21-32 Glucose 111 mg/dL High 70-105 BUN 19 mg/dL 6-26 Creatinine 1.0 mg/dL 0.6-1.4 BUN/Creat Ratio 19.0 CALC 8.0-36.0 Calcium 9.2 mg/dL 8.6-10.2 Total Protein 7.8 g/dL 6.4-8.3 Albumin 5.0 g/dL 3.8-5.5 Globulin 2.8 g/dL 2.0-4.8 A/G Ratio 1.8 CALC 0.6-2.3 Alk. Phosphatase 89 U/L 22-95 Alt (SGPT) 22 U/L 7-35 Ast (Sgot) 19 U/L 5-34 Total Bilirubin 0.6 mg/dL 0.2-1.3 GFR Non- >60 ml/min/1.73m^ >=60 GFR >60 ml/min/1.73m^ >=60 Lipid Profile 08/12/2017 [facility] Cholesterol 208 mg/dL High 120-200 Triglycerides 277 mg/dL High 30-200 HDL Cholesterol 73 mg/dL High 30-70 LDL (Calculated) 80 CALC 0-129 VLDL Cholesterol 55 mg/dL High 0-50 HDL Risk Factor 2.8 CALC 0.0-4.4 Laboratory test finding 08/12/2017 [facility]) TSH 2.14 mIU/L 0.50-6.00 PSA 2.1 ng/mL 0.0-4.0 CBC Electronic [facility] 08/12/2017 [facility]) WBC 8.1 x10^3/UL 4.0- 10.0 RBC 5.33 x10^6/UL 3.93-6.00 HGB 15.4 g/dL 12.0-17.0 HCT 45 % 35-50 MCV 84.6 fL 80.0-95.0 MCH 28.9 pg 25.6-32.2 MCHC 34.1 g/dL 32.2-36.0 RDW-CV 12.5 % 11.6-14.4 PLT 266 x10^3/UL 163-400 MPV 10.9 fL 9.4-12.4 Dania# 5.46 x10^3/UL 1.56-6.13 Lymph# 1.53 x10^3/UL 1.18-3.74 Rosebud# 0.63 x10^3/UL 0.24-0.82 Eos # 0.4 x10^3/UL 0.0-0.5 Baso # 0.07 x10^3/UL 0.01-0.08 Dania% 67.2 % 34.0-70.0 Lymph % 18.9 % Low 20.0-52.0 Rosebud% 7.8 % 5.0-12.0 Eos% 5.1 % 0.7-7.0 Baso% 0.9 % 0.1-1.2 Laboratory test 08/12/2017 [facility]) Uric Acid 8.0 mg/dL 2.5- 9.2 finding LDL, Direct 87 mg/dL 0-130 Laboratory test 07/01/2017 [facility] C-Reactive 69.5 mg/L High 0.0-4.9 3 finding [address] [facility] Protein, [place] [address] (607)- - Hla B 27 Disease Association Positive 4 Lyme AB/Western 07/01/2017 [facility] Lyme IgG/IgM Ab <0.91 ISR 0.00-0.90 5 Blot Reflex [address] [place] [address] (607)- - Laboratory test 07/01/2017 [facility] Antinuclear Negative Negative finding [address] [facility] [place] [address] Direct (607)- - Lyme Disease 07/01/2017 [facility] Lyme Disease AB 0.83 index High 0.00- 0.79 Ab, Quant, IgM [address] [facility] [place] [place] [address] (607)- - IgG P93 Ab. Absent IgG P66 Ab. Absent IgG P58 Ab. Absent IgG P45 Ab. Absent IgG P41 Ab. Absent IgG P39 Ab. Absent IgG P30 Ab. Absent IgG P28 Ab. Absent IgG P23 Ab. Absent IgG P18 Ab. Absent Lyme IgG WB Interp. Negative 6 IgM P41 Ab. Absent IgM P39 Ab. Absent IgM P23 Ab. Present Abnormal Lyme IgM WB Interp. Negative 7 Laboratory test 07/01/2017 [facility] Sedimentation Rate 32mm # finding (607)- - CBC Electronic a 07/01/2017 [facility]) WBC 9.8 4.0-10. x10^3/UL 0 RBC 5.37 x10^6/UL 3.93-6.00 HGB 15.6 g/dL 12.0-17.0 HCT 46 % 35-50 MCV 84.9 fL 80.0-95.0 MCH 29.1 pg 25.6-32.2 MCHC 34.2 g/dL 32.2-36.0 RDW-CV 12.0 % 11.6-14.4 PLT 231 x10^3/UL 163-400 MPV 11.4 fL 9.4-12.4 Dania# 7.53 x10^3/UL High 1.56-6.13 Lymph# 1.28 x10^3/UL 1.18-3.74 Rosebud# 0.86 x10^3/UL High 0.24-0.82 Eos # 0.1 x10^3/UL 0.0-0.5 Baso # 0.04 x10^3/UL 0.01-0.08 Dania% 76.6 % High 34.0-70.0 Lymph % 13.0 % Low 20.0-52.0 Rosebud% 8.7 % 5.0-12.0 Eos% 1.1 % 0.7-7.0 Baso% 0.4 % 0.1-1.2 Laboratory test finding 07/01/2017 [facility]) BUN 13 mg/dL 6- 26 Creatinine 0.9 mg/dL 0.6-1.4 Ua - Non Micro ([facility]) 04/08/2015 [facility] Appearance clear (607)- - Color yellow Glucose, Urine ([facility]/CTX) - Bilirubin - Ketones - SP Grav 1.020 Blood - PH 5.5 Protein - Urobil 0.2 Nitrite - Leukocytes (a/[facility]) - CBC Electronic ([facility]) 04/08/2015 [facility] WBC 6.7 3.6-9.6 (607)- - RBC 5.27 3.90-5.70 Hemoglobin ([facility]) 15.6 g/dL 12.1 - 17.2 Hematocrit ([facility]/CTX) 47.0 % 36.1 - 50.3 Platelets 246 10^3/ul 150-400 Lymph% 26.7 % 17.0-48.0 Mixed% 3.5 Neutrophils % 69.8 Mean Corpuscular Vol 89 82.2-97.4 Mean Corpuscular Hemoglobin 29.6 27.6-33.3 Mean Corpuscular Hemo Concen 33.2 32.0-36.0 RDW 13.2 11.6-13.7 Mean Platelet Volume 8.2 5.5-11.0 Laboratory test 04/08/2015 [facility]) PSA 1.5 ng/mL 0.0-4.0 finding Laboratory test 04/08/2015 [facility] Hep B Core Negative Negative 8 finding [address] [facility], [place] [address] (607)- - HCV Antibody <0.1 s/coratio 0.0-0.9 9 Measles/Mumps/Rubella 04/08/2015 [facility] Rubella 30.90 Immune 10 Immunity [address] [facility] Antibodies, index >0.99 [place] [address] IgG (607)- - Rubeola Ab, IgG >300.0 AU/mL Immune >29.9 11 Mumps Abs, IgG 23.7 AU/mL Immune >10.9 12 Laboratory test 04/08/2015 [facility]) TSH 2.41 mIU/L 0.50-6.00 finding Lipid Profile 04/08/2015 [facility]) Cholesterol 244 mg/dL High 120-200 Triglycerides 213 mg/dL High 30-200 HDL Cholesterol 71 mg/dL High 30-70 LDL (Calculated) 130 CALC High 0-129 VLDL Cholesterol 43 mg/dL 0-50 HDL Risk Factor 3.4 CALC 0.0-4.4 Comprehensive Metabolic 04/08/2015 [facility]) Sodium 137 mEq/L 134-149 Prof Potassium 4.3 mEq/L 3.6-5.5 Chloride 99 mEq/L 94-112 Carbon Dioxide 28 mEq/L 21-32 Glucose 97 mg/dL 70-105 BUN 11 mg/dL 6-26 Creatinine 0.8 mg/dL 0.6-1.4 BUN/Creat Ratio 13.8 CALC 8.0-36.0 Calcium 9.7 mg/dL 8.6-10.2 Total Protein 8.0 g/dL 6.4-8.3 Albumin 4.6 g/dL 3.8-5.5 Globulin 3.4 g/dL 2.0-4.8 A/G Ratio 1.4 CALC 0.6-2.3 Alk. Phosphatase 78 U/L 22-95 Alt (SGPT) 25 U/L 7-35 Ast (Sgot) 19 U/L 5-34 Total Bilirubin 0.7 mg/dL 0.2-1.3 GFR Non- >60 ml/min/1.73m^ >=60 GFR >60 ml/min/1.73m^ >=60 Laboratory test 06/28/2008 [facility] NEGATIVE Negative [address] ([place]) [place] [address] [phone] Laboratory test 06/14/2008 [facility]) Ferritin 153 ng/mL 22- 415 finding Hepatitis Acute 06/14/2008 [facility] Hep B Surface NEGATIVE Negative 14 Panel [address] Antigen [place], [place] [id number] [phone] Hep C Antibody NEGATIVE Negative Hep B Core Antibody Igm NEGATIVE 15 Hep A Antibody Igm NEGATIVE 16 Comprehensive Metabolic 05/17/2008 [facility]) Albumin 4.9 g/dL 3.8-5.5 17 Prof Alk. Phos. 88 U/L 22-95 Alt (SGPT) 55 U/L High 10-40 Ast (Sgot) 60 U/L High 5-34 BUN 18 mg/dL 6-26 Calcium 10.3 mg/dL High 8.6-10.2 18 Chloride 99 mEq/L 94-112 Creatinine 0.9 mg/dL 0.6-1.4 Carbon Dioxide 25 mEq/L 21-32 Glucose 108 mg/dL High 70-105 Sodium 137 mEq/L 134-149 Total Bilirubin 1.1 mg/dL 0.2-1.3 Total Protein 8.6 g/dL High 6.3-8.1 19 Potassium 5.5 mEq/L 3.6-5.5 Globulin 3.7 g/dL 2.0-4.8 A/G Ratio 1.3 Calc 0.6-2.2 BUN/Creat Ratio 20.4 Calc 8.0-36.0 Lipid Profile 05/17/2008 [facility]) Cholesterol 245 mg/dL High 120-200 HDL 60 mg/dL 30-70 Triglycerides 210 mg/dL High 30-200 HDL Risk Factor 4.1 CALC Low 4.2-7.0 LDL (Calculated) 143 CALC High 0-129 VLDL (Calculated) 42 mg/dL 0-50 Ua - Micro (a) 05/17/2008 [facility] Appearance CLEAR (607)- - Color YELLOW Glucose, Urine ([facility]) NEG Bilirubin NEG Ketones NEG SP Grav 1.020 Blood TRACE # PH 5.5 Protein NEG Urobil 0.2 Nitrite NEG Leukocytes ([facility]) NEG Hyaline - /Lpf Granular - /Lpf WBC ([facility]) - RBC 0-1 # Mucus (Fma/[facility]) - /Lpf Epith - /Lpf Bacteria - /Hpf Amorphous ([facility]) - /Lpf Crystals, Fluid ([facility]/CTX) - Z#Comments - Complete Blood Count 05/17/2008 [facility]) WBC 6.3 x10^3/uL 3.6 -9.6 Gran# 4.0 x10^3/uL 1.5-7.2 Gran% 63.6 % 42.2-75.2 HCT 49 % 36-50 HGB 16.9 g/dL 12.1-17.2 Lymph# 1.8 x10^3/uL 0.7-4.9 Lymph% 27.8 % 20.5-51.1 MCH 28.6 pg 27.6-33.3 MCV 83.0 fL 82.2-97.4 MCHC 34.5 g/dL 33.0-35.5 Mo# 0.5 x10^3/uL 0.1-0.9 Mo% 8.6 % 1.7-9.3 MPV 9.6 fL 7.4-10.4 PLT INVALID Low 150-400 20 RBC 5.89 x10^6/uL High 3.90-5.70 RDW 12.5 % 11.6-13.7 1 SEE RESULT BELOW Name: OSMAR JAUREGUI : [address]: Winsome Issa DO Acct: [id number] Unit: [id number] AGE: 57 Location: [facility] Re10/28/17 SEX: M Status: DEP REF SPEC: [id number] AJ: 10/28/17- SUBM DR: Winsome Issa DO REQ: [id number] RECD: 10/29/17-1213 STATUS: JOE BAUTISTA DR: Isael Hill MD _ ORDERED: LEVEL 4/3 FINAL DIAGNOSIS 1. Colon, sigmoid, biopsy: -- Hyperplastic polyps (2). 2. Colon, sigmoid at 30 cm, biopsy: -- Hyperplastic polyp. 3. Colon, rectum, biopsy: -- Hyperplastic polyps (2). CLINICAL HISTORY Screening/Surveillance for malignancy in asymptomatic patient; 57 year old male here for initial screening POST-OPERATIVE DIAGNOSIS Colonoscopy: normal terminal ileum; diverticulosis sigmoid; two 2 mm sessile sigmoid polyp ? one at 30 cm; two 2 mm sessile rectal polyps; fair prep; medium nonbleeding internal hemorrhoid GROSS DESCRIPTION 1. The specimen is received in formalin labeled, Biopsy Sigmoid Colon Polyps, and consists of two toussaint-white irregular soft tissue fragments averaging 0.2 x 0.2 x 0.1 cm which are submitted entirely in one cassette. 2. The specimen is received in formalin labeled, Biopsy Sigmoid Colon Polyp at 30 cm, and consists of a 0.3 x 0.2 x 0.1 cm toussaint-white polypoid soft tissue fragment which is submitted entirely in one cassette. 3. The specimen is received in formalin labeled, Biopsy Rectal Polyps, and consists of a CONTINUED ON NEXT PAGE DEPARTMENT OF PATHOLOGY, [facility] [place], [place] [address] Shlomo Jorge M.D. Director [facility] # [id number] RUN DATE: 10/30/17 [facility] LAB LIVE PAGE 2 Patient: OSMAR JAUREGUI [id number] (Continued) GROSS DESCRIPTION (Continued) GROSS DESCRIPTION (Continued) 0.7 x 0.3 x 0.1 cm aggregate of toussaint irregular soft tissue fragments which is submitted entirely in one cassette. Signed by and Reported on: Marianela Lopez MD 10/30/17 1024 END OF REPORT DEPARTMENT OF PATHOLOGY, [facility] [place], [place] [address] Shlomo Jorge M.D. Director [facility] # [id number] 2 Acute inflammation: >10.00 3 2 SST 1 LAV TOP EDTA TUBE 4 HLA-B*27:06 Positive As part of the testing procedure, the patients sample was screened for allele HLA-B*27:06, which the literature suggests is not associated with spondyloarthropathies. Therefore, while the patient is positive for HLA-B*27, the particular allele this patient has may not be associated with spondyloarthropathies. B27 allele interpretation for all loci based on IMGT/HLA database version 3.27 This test was developed and its performance characteristics determined by [email or web address]. It has not been cleared or approved by the Food and Drug Administration. [facility] CLIA ID Number [id number] This test was performed using PCR (Polymerase Chain Reaction)/SSOP (Sequence Specific Oligonucleotide Probes) technique. SBT (Sequence Based Typing) and/or SSP (Sequence Specific Primers) may be used as supplemental methods when necessary. Please contact [facility] Customer Service at if you have any questions. Director of [facility] Dr Clint Barr, PhD 5 Negative <0.91 Equivocal 0.91 - 1.09 Positive >1.09 6 Positive: 5 of the following Borrelia-specific bands: 18,23,28,30,39,41,45,58, 66, and 93. Negative: No bands or banding patterns which do not meet positive criteria. 7 Note: An equivocal or positive EIA result followed by a negative Western Blot result is considered NEGATIVE. An equivocal or positive EIA result followed by a positive Western Blot is considered POSITIVE by the CDC. Positive: 2 of the following bands: 23,39 or 41 Negative: No bands or banding patterns which do not meet positive criteria. Criteria for positivity are those recommended by CDC/ASTPHLD. p23=Osp C, s40=wobfnkdye Note: Sera from individuals with the following may cross react in the Lyme Western Blot assays: other spirochetal diseases (periodontal disease, leptospirosis, relapsing fever, yaws, and pinta); connective autoimmune (Rheumatoid Arthritis and Systemic Lupus Erythematosus and also individuals with Antinuclear Antibody); other infections ([place] Spotted Fever; Ramy-Olivares Virus, and Cytomegalovirus). 8 2 sst refrigerate 9 Negative: < 0.8 Indeterminate: 0.8 - 0.9 Positive: > 0.9 In order to reduce the incidence of a false positive result, the CDC recommends that all s/co ratios between 1.0 and 10.9 be confirmed by a more specific supplemental or PCR testing. [facility] offers HCV Ab w/Reflex to Verification test #[id number]. 10 Non-immune <0.90 Equivocal 0.90 - 0.99 Immune >0.99 11 Negative <25.0 Equivocal 25.0 - 29.9 Positive >29.9 Presence of antibodies to Rubeola is presumptive evidence of immunity except when acute infection is suspected. 12 Negative <9.0 Equivocal 9.0 - 10.9 Positive >10.9 A positive result generally indicates past exposure to Mumps virus or previous vaccination. 13 (Performed by Enzyme Immunoassay, EIA) 14 2 sst 15 Positive Hep B Core Antibody IgM suggests an acute or recent Hepatitis B viral infection. 16 POSITIVE Hep A Antibody IgM suggests an acute or recent Hepatitis A Viral infection. . NEGATIVE Hep A Antibody IgM and POSITIVE Hep A Antibody (IgG + IgM) indicates the presence of Hep A Antibody (IgG). This confirms previous exposure and immunity to the Hepatitis A Virus. 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, unsp cervical region Office Visit 07/18/2018 [facility] Office Kelsy Marshall M50.10 Cervical disc 8:15a [facility] Saenz disorder w radiculopathy, unsp cervical region Office Visit 05/14/2018 [facility] Office Kelsy Marshall M54.9 Dorsalgia, 1:00p CHARU Saenz unspecified Office Visit 01/29/2018 [facility] Office Marianela K13.79 Other lesions of 2:15p Vickie, 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 knee N40.0 Benign prostatic hyperplasia without lower urinry tract symp Z01.818 Encounter for other preprocedural examination Office Visit 08/12/2017 3:40p [facility] Isael Hill M79.671 Pain in M.D. 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 foot Office Visit 05/22/2017 8:30a [facility] Kelsy Marshall M25.562 Pain in left Dany, BONDERITE OPERATOR knee Office Visit 04/24/2017 9:00a [facility] Kelsy Marshall M79.671 Pain in right 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, BONDERITE OPERATOR foot Office Visit 12/29/2015 4:00p Main Office Karen Grey M79.671 Pain in right Afnp-C foot M79.672 Pain in left foot Office Visit 04/11/2015 10:45a [facility] Isael Goddard Z11.1 Encounter for Manoj Hill screening for respiratory tuberculosis Office Visit 04/08/2015 2:00p [facility] Isael Goddard M15.0 Primary Manoj Hill generalized (osteo)arthritis N40.0 Enlarged prostate without lower urinary tract symptoms Z00.00 Encntr for general adult medical exam w/o abnormal findings Z23 Encounter for immunization Z11.1 Encounter for screening for respiratory tuberculosis Office Visit 06/28/2008 9:30a [facility] Office Satnam Contreras 473.1 Sinusitis Manoj Haney Chronic Frontal 784.0 Headache 794.8 Liver Study Abnormal Office Visit 06/14/2008 10:40a [facility] Office Satnam Contreras 790.6 Abnormal Blood Manoj Haney Chemistry Other 784.0 Headache Office Visit 05/17/2008 9:00a [facility] Office Satnam Contreras V70.0 Examination Manoj Haney General Medical Routine AT [facility] 784.0 Headache V77.91 Screening For Lipoid Disorders 726.19 Shoulder Disorders Other Spec 599.70 Hematuria, Unspecified Office Visit 04/27/2008 8:00a Main Office Jose Carlos Gonzalez M.D. 784.0 Headache 461.9 Sinusitis Acute Unspec Office Visit 03/29/2008 10:40a Main Office Satnam Haney, 726.19 Shoulder Disorders M.DToshia Other Spec 719.47 Pain Joint Ankle & Foot Office Visit 03/23/2008 2:00p [facility] Office Satnam Haney, 723.1 Cervicalgia Vick.Surekha 726.19 Shoulder Disorders Other Spec Plan of Treatment 10/10/2018 - Isael Hill M.D.M25.562 Pain in left kneeNew Labs:CBC Electronic-[facility], Ordered: 10/10/18Comp Metabolic-[facility], Ordered: 10/10/18TSH (Fma/[facility]), Ordered: 10/10/18Comments:I feel he is medically clear for the planned arthroplasty by Dr Michi medina [facility].0710 Idiopathic chronic gout, right ankle and foot, without tophus (tophi)New Labs:Uric Acid (CMC,CX,Fma), Ordered: 10/10/18Comments: Symptoms seem stable with current use of SMGRQPU41.220 Encounter for screening for lipoid disordersNew Labs:Lipid Panel-[facility], Ordered: N40.0 Benign prostatic hyperplasia without lower urinary tract symptomsNew Labs:PSA (ALL Lab Comp), Ordered: 10/10/18Urinalysis W/RFL To Micro, Ordered: Comments:prostate is firm, check psaAllNew Medication:No Active Medications -Comments:Medication Management Patient Understands medications he 's taking? Yes No Are there Barriersto Adherence? Yes No Has the patient been asked about herbal supplements and therapies, and OTC meds? Yes No
--- OUTSIDE RECORDS SUMMARY | 2018-10-29 07:14 | XMS REPORT | Continuity of Care Document ---
:1960 External Reference #:[id number] Author Name Zakia Grissom Care Team Providers Name Role Phone Isael Hill MD Primary Care Physician Unavailable Payers Date Identification Numbers Payment Provider Subscriber Policy Number: [id number] [employer] Osmar Nova Group Number: [id number] [address] PayID: [id number] [place] [address] Effective: 2017 Policy Number: [id number] Atiya Nova Onset: 2017 Group Name: Fx [phone] [address] PayID: [place]NAN Velás[id number] Problems Active Problems Provider Date Current tear of medial cartilage AND/OR Kevin Severnio MD Onset: 2017 meniscus of knee Localized, primary osteoarthritis Kevin Severino MD Onset: 05/23/2017 Social History Type Date Description Comments Sex Unknown Occupation Currently Working ETOH Use Denies alcohol use Tobacco Use Start: Unknown Patient has never smoked Smoking Status Reviewed: 10/23/18 Patient has never smoked Exercise Type/Frequency Exercises sporadically Allergies, Adverse Reactions, Alerts Description No Known Drug Allergies Medications Active Medications SIG Qnty Indications Ordering Provider Date Cyclobenzaprine HCL take one tablet Unknown 5mg Tablets by mouth every 8 hours prn. may take a second tablet if first not effetive. Aleve 1-2 by mouth Unknown 220mg Capsules twice a day as needed History Medications Naproxen take one tab by 30tabs Kevin Sanchez 10/08/2017 - 500mg Tablets mouth twice a MD Mere 10/30/2017 day with food Aspirin Ec 1 tablet by 28tabs Kevin Sanchez 09/08/2017 - 325mg Tablets mouth twice Mere, MD 06/25/2018 daily for 14 days Percocet 1 - 2 tabs by 30tabs Kevin Sanchez 09/06/2017 - 5-325mg Tablets mouth every 4 - MD Mere 09/15/2017 6 hours as needed for pain. Naproxen DR take 1 tab every 90tabs Kevin Sanchez 07/08/2017 - 500mg Tablets 12 hours x 2 MD Mere 03/10/2018 DR morel. then as needed No Active Medications Unknown 05/23/2017 - 07/08/2017 Allopurinol 1 by mouth every Unknown - 100mg Tablets day 05/29/2018 Medications Administered in Office Medication SIG Qnty Indications Ordering Provider Date Synvisc Or Synvisc-One Kevin Severino MD 07/14/2018 Injection 1 MG Injection Synvisc Or Synvisc-One Veronica Calvillo RPA-C 07/04/2018 Injection 1 MG Injection Synvisc Or Synvisc-One Kevin Severino MD 06/26/2018 Injection 1 MG Injection Depomedrol 40MG Kevin Severino MD 05/29/2018 Injection Depomedrol 40MG Frances Rollins RPA-C 12/05/2017 Injection Depomedrol 40MG Kevin Severino MD 05/23/2017 Injection Vital Signs Date Vital Result Comment 10/23/2018 2:51pm Height 62 inches 5'2" Weight 150.00 lb BP Systolic Sitting 110 mmHg BP Diastolic Sitting 70 mmHg Pain Level 4 BMI (Body Mass Index) 27.4 kg/m2 10/09/2018 8:37am Height 62 inches 5'2" Weight 150.25 lb Heart Rate 76 /min BP Systolic 138 mmHg BP Diastolic 90 mmHg Respiratory Rate 16 /min Body Temperature 98.0 F Pain Level 5 BMI (Body Mass Index) 27.5 kg/m2 09/10/2018 2:18pm Height 62 inches 5'2" Weight 150.00 lb BP Systolic Sitting 130 mmHg BP Diastolic Sitting 86 mmHg Pain Level 8 BMI (Body Mass Index) 27.4 kg/m2 08/06/2018 9:10am Height 62 inches 5'2" Weight 150.00 lb BP Systolic Sitting 120 mmHg BP Diastolic Sitting 80 mmHg Pain Level 4 BMI (Body Mass Index) 27.4 kg/m2 08/05/2018 8:48am Height 62 inches 5'2" Weight 150.00 lb Heart Rate 70 /min BP Systolic 130 mmHg BP Diastolic 78 mmHg Respiratory Rate 14 /min Pain Level 2 BMI (Body Mass Index) 27.4 kg/m2 07/14/2018 3:09pm Height 62 inches 5'2" Weight 150.00 lb Heart Rate 80 /min BP Systolic 166 mmHg BP Diastolic 70 mmHg Respiratory Rate 16 /min Pain Level 3 BMI (Body Mass Index) 27.4 kg/m2 07/04/2018 8:44am Height 62 inches 5'2" Weight 155.00 lb BP Systolic 140 mmHg BP Diastolic 90 mmHg Respiratory Rate 15 /min Body Temperature 95.9 F Pain Level 3 BMI (Body Mass Index) 28.3 kg/m2 06/26/2018 9:05am Height 62 inches 5'2" Weight [...] BMI (Body Mass Index) 26.7 kg/m2 Results Test Date Facility Test Result H/L Range Note Urinalysis Profile 10/16/2018 [facility] Urine Color Straw [address] [place] [address] [phone] Urine Appearance Clear Urine Specific [place] 1.013 Normal 1.010-1.030 Urine pH 7.0 Normal 5-9 Urine Urobilinogen Negative Negative Urine Ketones Negative Negative Urine Protein Negative Negative Urine Leukocytes Negative Negative Urine Blood Negative Negative Urine Nitrite Negative Negative Urine Bilirubin Negative Negative Urine Glucose Negative Negative Inr/Protime 10/16/2018 [facility] Inr 0.91 Normal 0.82-1.09 [address] [place] [address] [phone] Laboratory test 10/16/2018 [facility] Partial 40.6 High 26.0- 38.[address] [place] [address] Time PTT [phone] Comp Metabolic 10/16/2018 [facility] Sodium 139 mmol/L Normal 135-[address] [place] [address] [phone] Potassium 4.4 mmol/L Normal 3.5-5.0 Chloride 102 mmol/L Normal 101-111 Co2 Carbon Dioxide 31 mmol/L Normal 22-32 Anion Gap 6 mmol/L Normal 2-11 Glucose 101 mg/dL High 70-100 Blood Urea Nitrogen 14 mg/dL Normal 6-24 Creatinine 0.82 mg/dL Normal 0.67-1.17 BUN/Creatinine Ratio 17.1 Normal 8-20 Calcium 10.0 mg/dL Normal 8.6-10.3 Total Protein 7.9 g/dL Normal 6.4-8.9 Albumin 4.8 g/dL Normal 3.2-5.2 Globulin 3.1 g/dL Normal 2-4 Albumin/Globulin Ratio 1.5 Normal 1-3 Total Bilirubin 0.60 mg/dL Normal 0.2-1.0 Alkaline Phosphatase 99 U/L Normal 34-104 Alt 16 U/L Normal 7-52 Ast 18 U/L Normal 13-39 Egfr Non- 96.2 >60 Egfr 116.4 >60 2 CBC Auto 10/16/2018 [facility] White Blood 6.9 10^3/uL Normal 3.5-10.[address] [place] [address] [phone] Red Blood Count 5.55 10^6/uL High 4.18-5.48 Hemoglobin 15.4 g/dL Normal 14.0-18.0 Hematocrit 47 % Normal 42-52 Mean Corpuscular Volume 84 fL Normal 80-94 Mean Corpuscular Hemoglobin 28 pg Normal 27-31 Mean Corpuscular HGB Conc 33 g/dL Normal 31-36 Red Cell Distribution Width 13 % Normal 10-15 Platelet Count 238 10^3/uL Normal 150-450 Mean Platelet Volume 10.1 fL Normal 7.4-10.4 Abs Neutrophils 4.7 10^3/uL Normal 1.5-7.7 Abs Lymphocytes 1.4 10^3/uL Normal 1.0-4.8 Abs Monocytes 0.4 10^3/uL Normal 0-0.8 Abs Eosinophils 0.3 10^3/uL Normal 0-0.6 Abs Basophils 0.0 10^3/uL Normal 0-0.2 Abs Nucleated RBC 0.0 10^3/uL Granulocyte % 68.7 % Lymphocyte % 20.5 % Monocyte % 6.2 % Eosinophil % 4.1 % Basophil % 0.5 % Nucleated Red Blood Cells % 0.2 Type & Screen 10/16/2018 [facility] Patient Blood Type B Positive [address] [place] [address] [phone] Antibody Screen NEGATIVE Urine Culture And 10/16/2018 [facility] Urine Culture SEE RESULT [address] [place] [address] [phone] 1 Standard intensity warfarin therapeutic range: 2.0-3.0 High intensity warfarin therapeutic range: 2.5-3.5 2 Because ethnic data is not always readily available, this report includes an eGFR for both -Americans and non- Americans. The National Kidney Disease Education Program (NKDEP) does not endorse the use of the MDRD equation for patients that are not between the ages of 18 and 70, are , have extremes of body size, muscle mass, or nutritional status, or are non- or non-. According to the National Kidney Foundation, irrespective of diagnosis, the stage of the disease is based on the level of kidney function: Stage Description GFR(mL/min/1.73 m(2)) 1 Kidney damage with normal or decreased GFR 90 2 Kidney damage with mild decrease in GFR 60-89 3 Moderate decrease in GFR 30-59 4 Severe decrease in GFR 15-29 5 Kidney failure <15 (or dialysis) 3 SEE RESULT BELOW Name: NOVAOSMAR : [address]: Kevin Severino MD Acct: [id number] Unit: [id number] AGE: 58 Location: LAB Re10/16/18 SEX: M Status: REG REF SPEC: [id number] AJ: 10/16/[address] [facility] [address]: Kevin Severino MD REQ: [id number] RECD: 10/16/18 STATUS: ROCKY BAUTISTA DR: Isael Hill MD _ SOURCE: URINE SPDESC: ORDERED: Urine Culture QUERIES: Urine Source: Clean Catch Procedure Result Reported Site Urine Culture Final 10/17/18- 0845 ML No Growth (<1,000 CFU/mL) * ML - Main Lab . END OF REPORT DEPARTMENT OF PATHOLOGY, [address], [place], [place] [address] Shlomo Jorge M.D. Director [facility] # [id number] Procedures Date Code Description Status 07/14/201811072 Inject/Drain Joint/Bursa Major W/O US Completed 07/04/201823908 Inject/Drain Joint/Bursa Major W/O US Completed 06/26/201893590 Inject/Drain Joint/Bursa Major W/O US Completed 05/29/2018 63583 Inject/Drain Joint/Bursa Major W/O US Completed 12/05/2017 54803 Inject/Drain Joint/Bursa Major W/O US Completed 10/28/2017 74263 Colonoscopy Flexible W/Biopsy Completed 10/28/2017 [id number] Colonoscopy Completed 09/06/2017 60824 Arthroscopy,Knee,Meniscectomy Medial Or Lateral Completed 09/06/2017 55851 Arthroscopy,Knee,Meniscectomy Medial Or Lateral Completed 05/23/201785708 Inject/Drain Joint/Bursa Major W/O US Completed Encounters Type Date Location Provider Dx Diagnosis Office Visit 10/23/2018 Neurosurgery Alpa Gaffney M54.12 Radiculopathy, 2:30p 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 [employer] PA cervical region Office Visit 09/10/2018 Spine Navigator Of Nandini Strauss 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 Set Up Mechanic [employer] PA-C disorder at C5-C6 level with radiculopathy Office Visit 08/06/2018 Neurosurgery Nandini Strauss M50.122 Cervical disc 9:15a 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 [employer] PA-C disorder at C5-C6 level with radiculopathy Office Visit 08/05/2018 Orthopedic Services Kevin Sanchez M17.12 Unilateral primary 8:45a Of Trevor Severino MD osteoarthritis, left knee M17.12 Unilateral primary osteoarthritis, left knee M25.562 Pain in left knee Office Visit 06/26/2018 9:00a Orthopedic Kevin Sanchez S83.232D Complex tear Services Of MD Mere of [facility] Trevor [facility], current injury, l knee, subs M17.12 Unilateral primary osteoarthritis, left knee M25.562 Pain in left knee Office Visit 05/29/2018 3:15p Orthopedic Kevin Sanchez S83.232D Complex tear Services Of MD Mere of [facility], current injury, l knee, subs M17.12 [...] l knee, subs Plan of Treatment Future Appointment(s):11/26/2018 10:00 am - SELENE Boss at [facility]10/29/2018 7:30 am - MARIA A Abdul at [facility]11/10/2018 3:00 pm - Kevin Severino MD at [facility]10/29/2018 7:30 am - SELENE Shea at [facility]10/29/2018 7:30 am - Kevin Severino MD at [facility]10/23/2018 - Alpa Gaffney, PAM54.12 Radiculopathy , cervical regionNew Xrays:Spine Entire Ap/Lat, Ordered: 10/23/18SP Cervical 2- 3 VWS, Ordered: 10/23/18New Orders:EMG w/Nerve Conduct Study, Upper, Ordered: Follow up:RTC in 4 weeks
--- OUTSIDE RECORDS SUMMARY | 2018-10-29 07:14 | XMS REPORT | Continuity of Care Document ---
:1960 External Reference #:[id number] Author Name Kiki Matthews Care Team Providers Name Role Phone Isael Hill MD Primary Care Physician Unavailable Payers Date Identification Numbers Payment Provider Subscriber Policy Number: [id number] [employer] Jeffrey Nova Group Number: [id number] [address] PayID: [id number] [place] [address] Effective: 2017 Policy Number: [id number] Atiya Nova Onset: 2017 Group Name: Fx [phone] [address] PayID: [place]NAN [place] [id number] Problems Active Problems Provider Date Current tear of medial cartilage AND/OR Kevin Severino MD Onset: 2017 meniscus of knee Localized, primary osteoarthritis Kevin Severino MD Onset: 05/23/2017 Social History Type Date Description Comments Sex Unknown Occupation Currently Working ETOH Use Denies alcohol use Tobacco Use Start: Unknown Patient has never smoked Smoking Status Reviewed: 10/09/18 Patient has never smoked Exercise Type/Frequency Exercises sporadically Allergies, Adverse Reactions, Alerts Description No Known Drug Allergies Medications Active Medications SIG Qnty Indications Ordering Provider Date Aleve 1-2 by mouth Unknown 220mg Capsules twice a day as needed History Medications Naproxen take one tab by 30tabs Kevin Sanchez 10/08/2017 - 500mg Tablets mouth twice a MD Mere 10/30/2017 day with food Aspirin Ec 1 tablet by 28tabs Kevin Sanchez 09/08/2017 - 325mg Tablets DR mouth twice MD Mere 06/25/2018 daily for 14 days Percocet 1 - 2 tabs by 30tabs Kevin Sanchez 09/06/2017 - 5-325mg Tablets mouth every 4 - MD Mere 09/15/2017 6 hours as needed for pain. Naproxen DR take 1 tab 90tabs Kevin Sanchez 07/08/2017 - 500mg Tablets DR every 12 hours MD Mere 03/10/2018 x 2 weeks. then as needed No Active Medications Unknown 05/23/2017 - 07/08/2017 Cyclobenzaprine HCL take one tablet Unknown - 5mg Tablets by mouth every 05/29/2018 8 hours prn. may take a second tablet if first not effetive. Allopurinol 1 by mouth Unknown - 100mg Tablets every day 05/29/2018 Medications Administered in Office Medication [...] Injection Vital Signs Date Vital Result Comment 10/09/2018 8:37am Height 62 inches 5'2" Weight [...] 10 BMI (Body Mass Index) 26.7 kg/m2 Procedures Date Code Description Status 07/14/201894771 Inject/Drain Joint/Bursa Major W/O US Completed 07/04/201886097 Inject/Drain Joint/Bursa Major W/O US Completed 06/26/201854405 Inject/Drain Joint/Bursa Major W/O US Completed 05/29/201802539 Inject/Drain Joint/Bursa Major W/O US Completed 12/05/2017 87991 Inject/Drain Joint/Bursa Major W/O US Completed 10/28/2017 78647 Colonoscopy Flexible W/Biopsy Completed 10/28/2017 32004215 Colonoscopy Completed 09/06/2017 09410 Arthroscopy,Knee,Meniscectomy Medial Or Lateral Completed 09/06/2017 13246 Arthroscopy,Knee,Meniscectomy Medial Or Lateral Completed 05/23/2017 32260 Inject/Drain Joint/Bursa Major W/O US Completed Encounters Type Date Location Provider Dx Diagnosis Office Visit 09/10/2018 Spine Navigator Of Chloe Hodge0.122 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, current injury, l knee, subs M17.12 Unilateral primary osteoarthritis, left knee Office Visit 05/15/2018 1:45p Orthopedic Kevin Sanchez S83.232D Complex tear Services Of MD Mere of [facility], current injury, l knee, subs [...] l knee, subs Plan of Treatment Future Appointment(s):11/10/2018 3:00 pm - Keivn Severino MD at [facility]10/29/2018 7:30 am - SELENE Shea at [facility]10/29/2018 7:30 am - Kevin Severino MD at [facility]10/15/2018 2:00 pm - SELENE Boss at [facility]surgery [facility]10/09/2018 - Kevin Severino, MDM17.12 Unilateral primary osteoarthritis, left kneeFollow up:Follow up: 10-14 days postop
[2018-10-29] MEDS ORDERED: Bupivacaine 0.25% EPI 200,000* 30 ML SDV ONE (07:26)
[2018-10-29] MEDS ORDERED: Dexamethasone IV* 4 MG/ML 1 ML (4 MG) ONE (07:27)
[2018-10-29] MEDS ORDERED: Gabapentin CAP(*) 300 MG ONE (07:28)
[2018-10-29] MEDS ORDERED: celeCOXIB CAP* 200 MG ONE (07:28)
[2018-10-29] MEDS ORDERED: Famotidine IV* 10 MG/ML 2 ML (20 mg) ONE (07:29)
[2018-10-29] MEDS ORDERED: Buffered Lidocaine 1% SYRIN* 1 ML/SYRINGE INTRADERM ONE (07:29)
[2018-10-29] MEDS ORDERED: ceFAZolin 2 GM in NS PREMIX(*) 2 GM/100 ML BAG IVPB ONE (07:29)
[2018-10-29] MEDS ORDERED: ROPIVACAINE 5 MG/ML 30 ML BTL (0.5%) ONE (08:10)
[2018-10-29] MEDS ORDERED: Midazolam* 1 MG/ML 5 ML VIAL (5 MG) ONE (08:33)
[2018-10-29] MEDS ORDERED: Atracurium* 10 MG/ML 10 ML VIAL ONE (08:33)
[2018-10-29] MEDS ORDERED: fentaNYL* 50 MCG/ML 5 ML VIAL (250 MCG VIAL) ONE (08:33)
[2018-10-29] MEDS ORDERED: Propofol* 10 MG/ML 20 ML BTL ONE (08:34)
[2018-10-29] MEDS ORDERED: Ondansetron INJ* 2 MG/ML VIAL ONE ×2 (08:34→14:25)
[2018-10-29] MEDS ORDERED: Lidocaine 2% PF * 5 ML VIAL ONE (08:34)
[2018-10-29] MEDS ORDERED: Acetaminophen IV 1GM/100ML * 100 ML ONE (09:14)
[2018-10-29] MEDS ORDERED: Naloxone* 0.4 MG/ML 1 ML VIAL IV PRN (09:41)
[2018-10-29] MEDS ORDERED: DiMENhydriNATE IV* 50 MG/ML VIAL IV PUSH PRN (09:41)
[2018-10-29] MEDS ORDERED: fentaNYL* 50 MCG/ML 2 ML VIAL (100 MCG VIAL) IV PRN (09:41)
[2018-10-29] MEDS ORDERED: Ondansetron INJ* 2 MG/ML VIAL IV PRN (09:41)
[2018-10-29] MEDS ORDERED: fentaNYL* 50 MCG/ML 2 ML VIAL (100 MCG VIAL) ONE ×2 (10:42→14:04)
[2018-10-29] MEDS ORDERED: Bupivacaine 0.5% W/EPI SDV* 30 ML VIAL ONE (13:16)
[2018-10-29] MEDS ORDERED: oxyCODONE/Acetamin 5/325 MG* TAB PO PRN (13:46)
[2018-10-29] MEDS ORDERED: traZODone TAB* 50 MG TAB PO PRN (13:46)
[2018-10-29] MEDS ORDERED: Magnesium Hydroxide LIQ* 30 ML UDC PO PRN (13:46)
[2018-10-29] MEDS ORDERED: Bisacodyl SUPP* 10 MG SUPP PR PRN (13:46)
[2018-10-29] MEDS ORDERED: Polyethylene Glycol 3350* 17 GM PACKET PO PRN (13:46)
[2018-10-29] MEDS ORDERED: diPHENhydraMINE PO* 25 MG PO PRN (13:46)
[2018-10-29] MEDS ORDERED: Ondansetron ODT TAB* 4 MG PO PRN (13:46)
[2018-10-29] MEDS ORDERED: Morphine 4 MG/ML VIAL (1 ml) 4 MG/ML VIAL IV PRN (13:46)
[2018-10-29] MEDS ORDERED: diPHENhydraMINE IV* 50 MG/ML 1 ml VIAL (BENADRYL) IV PRN (13:46)
[2018-10-29] MEDS ORDERED: DiMENhydriNATE IV* 50 MG/ML VIAL ONE (13:57)
[2018-10-29] MEDS ORDERED: HYDROmorphone INJ1* 1 MG/ML SYRINGE ONE (14:08)
[2018-10-29] MEDS: HYDROmorphone INJ1* 1 MG/ML SYRINGE IV PRN ×3 (14:09→14:32)
[2018-10-29] MEDS ORDERED: oxyCODONE/Acetamin 5/325 MG* TAB ONE (15:01)
[2018-10-29] MEDS: Lactated Ringers 1000 ML Bag* 1,000 ML IV SCH (15:43)
[2018-10-29] MEDS: Acetaminophen TAB* 325 MG PO SCH (17:31)
[2018-10-29] MEDS: ceFAZolin 1 GM ADVAN(*) 1 GM in NS 0.9% 50 ML* 50 ML IVPB SCH (17:34)
[2018-10-29] MEDS: oxyCODONE/Acetamin 5/325 MG* TAB PO PRN ×2 (18:18→22:48)
[2018-10-29] MEDS: Docusate CAP* 100 MG PO SCH (21:56)
[2018-10-29] MEDS: oxyCODONE TAB* 5 MG TAB PO PRN (21:56)
[2018-10-29] MEDS: Aspirin TAB* 325 MG PO SCH (21:56)
[2018-10-29] MEDS: Magnesium Hydroxide LIQ* 30 ML UDC PO SCH (21:56)
--- NOTE | 2018-10-29 23:34 | OP ---
DATE OF OPERATION: 10/29/18 - ROOM #350 DATE OF : 58 SURGEON: Kevin Severino MD HEMODIALYSIS CHARGE NURSE: SELENE Pimentel; SELENE Shea. A physician environmental services assistant was required for the length of the procedure for assistance with the patient positioning, retraction, instrumentation, and closure. ANESTHESIOLOGIST: Dr. Palomo. ANESTHESIA: General anesthesia, regional adductor canal block anesthesia, local anesthesia consisting of Marcaine 0.5% with epinephrine. PRE-OP DIAGNOSIS: Left knee medial compartment osteoarthritis. POST-OP DIAGNOSES: Left knee medial compartment osteoarthritis. OPERATIVE PROCEDURES: 1. Left knee unicompartmental knee arthroplasty, medial compartment. 2. Computer assisted navigational procedure using the [employer] Navio robot device. ANTIBIOTICS: Ancef 2 g IV. IV FLUIDS: 1000 cc crystalloid. SKIN TO SKIN TIME: 226 minutes. TOURNIQUET TIME: Tourniquet, left thigh, set at 300 mm was used for 24 minutes initially. I then put the tourniquet down for over 15 minutes. I then elevated the tourniquet for some component of 162 minutes, at 120 or sooner. I then put the tourniquet down for another 15 minutes and the tourniquet was then elevated for a third time. The total tourniquet time was 186 minutes; however, there were multiple, 2, tourniquet holidays of over 15 minutes interspersed. I would have been happy to deflate the tourniquet, but there were no complaints and I was following appropriate AAOS guidelines. SPECIMEN: None. IMPLANTS: [employer] ZUK left medial unicompartmental arthroplasty system. This was formerly owned by [employer]. Femoral component was a size D. Tibial component was a size 1. The polyethylene insert was of 9 mm height. I used Palacos cement. ESTIMATED BLOOD LOSS: Minimal. RADIATION USE: None. COMPLICATIONS: None. URINE OUTPUT: The patient was straight catheterized at the end of the procedure and had a very minimum amount of urine output, it appeared less than 50 cc. INDICATIONS FOR PROCEDURE: The patient is a 58-year-old man, with persistent medial sided left knee pain. In August 2017, I had performed a left knee arthroscopic partial medial meniscectomy. This improved his pain, but his pain recurred and persisted. Both at the time of August 2017 arthroscopy and by recent radiography and MRI imaging, the patient's degenerative changes in the left knee were limited to the medial compartment. The patient failed nonoperative management and opted for surgery. Discussed risks and potential complications with the patient, both through a family member of his, who interpreted during clinic and also through interpreters on the telephone in clinic, and also using an warp dyeing vat tender on the day of surgery. Risks of surgery included bleeding, infection, nerve or blood vessel injury, hardware loosening, failure, advancement of osteoarthritis, need for future surgery, knee pain, stiffness, DVT. The patient opted to move forward with surgery. DESCRIPTION OF PROCEDURE: In preoperative holding, the patient signed a written consent after I obtained surgical consent through an warp dyeing vat tender on the phone. Operative extremity was marked in preoperative holding. The patient was taken back to the operating room and placed supine on the operating room table. Sedated and intubated. The patient has had a adductor canal block by Anesthesia in preoperative holding. I placed a lateral post on the table. Tourniquet about the left proximal thigh. Left lower extremity was prepped and draped. [facility] knee positioning system was applied. Formal time-out performed. Esmarch applied and tourniquet elevated to 300 mmHg. I performed a modified open approach to the knee joint. My longitudinal anterior skin incision was biased somewhat medial. Dissected down to the extensor mechanism. I performed a medial parapatellar arthrotomy with the knee flexed. I was very careful not to injure any of the patellofemoral compartments with this approach. Continued that cut distal through the medial meniscus. I advanced my arthrotomy proximally into the quadriceps tendon as per my total knee arthroplasty technique. I released some capsule off the medial tibial plateau with Bovie electrocautery , as well some capsule adjacent to the patellar tendon. I debrided a small amount of the fat deep to the patellar tendon as well as ligamentum mucosum. I placed retractors. Exposure was excellent. I next placed my alignment pins, 2 in the tibia shaft and 2 in the distal femoral shaft. I made skin incisions and advanced these pins bicortically, both in tibia and femur. I attached the appropriate Navio receptors to these pins. I performed all of the appropriate zeroing and templating of the computer navigational system to setup my case. This involves a variety of manipulations of the left lower extremity and then painting of points along the distal femoral and proximal tibial surface as well as some knee anatomic landmarks. Prior to this, I placed the appropriate pins in the femur and tibia to help with alignment. Templated case. Picked an appropriate size and location of femoral and tibial implants. Externally rotated my femoral component approximately 3 degrees. Set flexion to best fit pitka's point anatomy of that implant. A tibial component was fixed approximately 5 degrees, matching the pitka's point slope. The wear pattern or stress pattern produced by the two implants was excellent as predicted by the system as was my gap with valgus stress through a full range of motion. Certainly, we varied a multiple times the sizes and locations of the implants to optimize the gap, balance and position of implants. I next used libertad to debride femur and then tibia. Resized the tibia to a 1. Placed the tibial trial, pinned it in place and drilled through it. Placed the femoral trial and drilled through it. Prior to drilling through these trials, I had again measured the gap of the system using Navio and confirmed excellent placement of implants and position. Next, cemented final implants in place after profuse irrigation. I trialed with a 9-mm insert and both by my manual exam and by navigation, this was a good fit. I placed final polyethylene insert. There was no free cement. Irrigation. Closed the medial parapatellar arthrotomy with igfnea-ut-aookt stitches using Ethibond 1 suture as well as Vicryl 0 suture. Closed the subcutaneous tissue with buried simple stitches using Vicryl 2.0 suture. Closed the skin with emelyn. Removed pins. On thigh incisions, I used Vicryl 2-0 suture for buried simple stitches in the subcutaneous tissue and then emelyn. For the lower leg incisions, just used emelyn in the skin. I placed local anesthesia, 20 cc about the knee. I then placed dressing, Xeroform, 4x4s, ABDs, sterile Webril, Juan C bandage from foot to proximal thigh and cooling unit placed over the knee. The patient was awakened, extubated and taken to the PACU. DISPOSITION: The patient was admitted postoperatively for pain control and medical management. The patient will be treated with IV and oral pain medication. We will start physical therapy with weightbearing as tolerated and the patient will be discharged home as soon as medically and functionally stable. The patient was slightly confused in the PACU and spoke to a family member of his by phone. Anesthesia assessed the patient and the patient was thought to be stable and was transferred to the floor. [id number]/[facility] #: [id number] MTDD
[2018-10-30] MEDS: ceFAZolin 1 GM ADVAN(*) 1 GM in NS 0.9% 50 ML* 50 ML IVPB SCH ×2 (00:59→09:15)
[2018-10-30] MEDS: Acetaminophen TAB* 325 MG PO SCH ×3 (01:00→17:02)
[2018-10-30] MEDS: Lactated Ringers 1000 ML Bag* 1,000 ML IV SCH (02:28)
[2018-10-30] MEDS: oxyCODONE TAB* 5 MG TAB PO PRN ×4 (02:32→19:53)
[2018-10-30] MEDS: oxyCODONE/Acetamin 5/325 MG* TAB PO PRN ×4 (04:58→22:55)
[2018-10-30] MEDS: traMADol TAB* 50 MG PO PRN (04:59)
[2018-10-30 05:25] LABS: Hematocrit 40 % (42-52); Hemoglobin 13.4 g/dL (14.0-18.0); Mean Platelet Volume 9.5 fL (7.4-10.4); Platelet Count 236 10^3/uL (150-450)
[2018-10-30 05:46] LABS: BUN/Creatinine Ratio 21.2 (8-20); Calcium 9.2 mg/dL (8.6-10.3); EGFR African American 93.6 (>60); EGFR Non-African American 77.4 (>60); Potassium 4.2 mmol/L (3.5-5.0)
[2018-10-30] MEDS: Aspirin TAB* 325 MG PO SCH ×2 (09:12→19:53)
[2018-10-30] MEDS: Cyclobenzaprine TAB* 10 MG PO PRN (09:12)
[2018-10-30] MEDS: Docusate CAP* 100 MG PO SCH ×2 (09:12→19:53)
[2018-10-30] MEDS: Magnesium Hydroxide LIQ* 30 ML UDC PO SCH ×2 (09:13→19:53)
[2018-10-30] MEDS: Ondansetron INJ* 2 MG/ML VIAL IV PRN (10:56)
--- NOTE | 2018-10-30 12:57 | PN ---
Progress Note - Progress Note Date of Service: 10/30/18 SOAP: Subjective: Pt is doing well. He ambulated with PT this am and had GOULD and dizziness after. This has since resolved. He denies CP or SOB. Denies F/C. Brother present to translate Objective: PE- 58 y/o WDWN M NAD, A&Ox3 LLE- dressing c/d/i, calf soft NT, +DF/PF ankle, +2 dp pulse, SILT distally Vital Signs Temp Pulse Resp BP Pulse Ox 98.7 F 79 16 146/83 95 10/30/18 12:05 10/30/18 12:05 10/30/18 12:05 10/30/18 12:05 10/30/18 12:05 Laboratory Results - last 24 hr 10/30/18 10/30/18 04:59 04:59 Hgb 13.4 L Hct 40 L Plt Count 236 MPV 9.5 Sodium 137 Potassium 4.2 Chloride 102 Carbon Dioxide 27 Anion Gap 8 BUN 21 Creatinine 0.99 Est GFR ( Amer) 93.6 Est GFR (Non-Af Amer) 77.4 BUN/Creatinine Ratio 21.2 H Glucose 133 H Calcium 9.2 Assessment: POD 1 S/P left knee uniarthroplasty of the medial compartment with Navio assist Plan: WBAT- PT/OT Continue pain control with percocet and cyclobenzaprine ASA 325 mg bid for DVT prophylaxis x 4 weeks post op Colace as needed for constipation Will cont to monitor headache and dizziness. Currently resolved. Stable VS and H&H. Possible DC to home with outpatient PT if feeling well after PT today. If continued dizziness will consult hospitalists and suspend DC Meds sent to inpatient pharmacy today
[2018-10-31] MEDS: Acetaminophen TAB* 325 MG PO SCH ×3 (01:34→16:44)
[2018-10-31] MEDS: oxyCODONE TAB* 5 MG TAB PO PRN ×2 (01:41→09:41)
[2018-10-31] MEDS: oxyCODONE/Acetamin 5/325 MG* TAB PO PRN ×5 (02:35→21:14)
[2018-10-31] MEDS: traMADol TAB* 50 MG PO PRN (04:40)
[2018-10-31] MEDS: Ondansetron INJ* 2 MG/ML VIAL IV PRN (06:09)
[2018-10-31 08:28] LABS: Hematocrit 43 % (42-52); Mean Platelet Volume 9.8 fL (7.4-10.4); Platelet Count 200 10^3/uL (150-450)
[2018-10-31] MEDS: Aspirin TAB* 325 MG PO SCH ×2 (09:39→21:14)
[2018-10-31] MEDS: Docusate CAP* 100 MG PO SCH ×2 (09:40→21:14)
[2018-10-31] MEDS: Magnesium Hydroxide LIQ* 30 ML UDC PO SCH ×2 (09:40→21:13)
--- NOTE | 2018-10-31 09:40 | PN ---
Progress Note - Progress Note Date of Service: 10/31/18 SOAP: Subjective: []Patient seen at bedside with remote supervisor facepiece line aiding in translation. He continues to complain of knee pain and has not been bearing weight secondary to pain. He states he has SOB and chest pain today. Feeling nauseated as well. Objective: [] Vital Signs Temp 98.1 F 10/31/18 07:22 Pulse 86 10/31/18 07:22 Resp 16 10/31/18 07:22 BP 152/93 10/31/18 07:22 Pulse Ox 90 10/31/18 07:22 Intake & Output 10/30/18 10/31/18 10/31/18 18:59 06:59 18:59 Intake Total 1974 1060 Output Total 1425 950 Balance 549 110 Intake: IV Fluids 1554 ABX - CEFAZOLIN 55 LR 1499 Oral 420 1060 Output: Urine 925 950 Emesis 500 Other: Estimated Void Medium Date of Last Bowel 10/31/2018 Movement # Bowel Movements 1 1 Estimated Stool Amount Medium Medium # Voids 1 Laboratory Results - last 24 hr 10/31/18 07:56 Hgb 14.0 Hct 43 Plt Count 200 MPV 9.8 Left knee dressing intact and dry calf non tender 2 + DP pulse foot pink and warm Assessment: []s/p left uni knee arthroplasty POD #3 Plan: []Will order CTA and EKG now EKG normal sinus rhythm CTA negative for PE, or other pulmonary findings Need to encourage OOB and knee motion understanding the knee will be painful. Will likely need rehab based on slow progress with therapy.
[2018-10-31] MEDS ORDERED: Iohexol 350* (CONTRAST) 500 ML MDV IV ONE (09:59)
[2018-11-01] MEDS: oxyCODONE/Acetamin 5/325 MG* TAB PO PRN ×3 (01:15→21:38)
[2018-11-01] MEDS: Acetaminophen TAB* 325 MG PO SCH ×3 (01:20→18:15)
[2018-11-01] MEDS: traMADol TAB* 50 MG PO PRN ×2 (03:25→13:02)
[2018-11-01 05:33] LABS: Hematocrit 42 % (42-52); Mean Platelet Volume 9.9 fL (7.4-10.4); Platelet Count 200 10^3/uL (150-450)
[2018-11-01] MEDS: Docusate CAP* 100 MG PO SCH ×2 (07:52→21:38)
[2018-11-01] MEDS: Magnesium Hydroxide LIQ* 30 ML UDC PO SCH ×2 (07:52→21:38)
[2018-11-01] MEDS: Aspirin TAB* 325 MG PO SCH ×2 (07:52→21:38)
--- NOTE | 2018-11-01 10:19 | PN ---
Progress Note - Progress Note Date of Service: 11/01/18 SOAP: Subjective: The patient has had slightly elevated BPs and has complained of headache and left knee pain. I just spoke with family member Yfn Murphy, his older brother. Yfn said that the patient does not have a history of headaches. The patient has had a headache since surgery and some dizziness. These have only slightly improved since Saturday. He has also complained of a decreased appetite and left knee pain. Yfn thought that the patient also might be sad that his nuclear family , a son specifically, is in [place] and not here to support him. The patient and Yfn are aware that the patient needs to obtain knee ROM and strength with PT despite any left knee pain to recover best. A language barrier minimizes history taken from patient. Though the patient was able to articulate to me that he has a headache. Of note, the patient's father had a CVA at age 76, the patient is a former smoker, and he has baseline hypertension. The patient told ortho PA earlier in the week that headache and dizziness resolved, but now the patient and the patient's brother says that it has persisted. The patient complained of chest pain yesterday which jled to EKG and CT chest which were negative for NE or PE. Objective: NAD. Non-toxic appearing. The patient has an ice pack on his head. He became tearful as I spoke with him. LLE: - Incisions c/d/i - NVID Selected Entries 10/31/18 10/31/18 10/31/18 20:01 20:26 23:03 Temperature Pulse Rate Respiratory Rate Blood Pressure 150/75 152/49 148/84 (mmHg) O2 Sat by Pulse Oximetry 11/01/18 11/01/18 03:12 07:18 Temperature 97.3 F Pulse Rate 88 Respiratory 16 Rate Blood Pressure 151/85 148/88 (mmHg) O2 Sat by Pulse 96 Oximetry Laboratory Tests 11/01/18 05:02 Hct 42 Assessment: POD 3 uni medial knee arthroplasty Postoperative variety of complaints- persistent headache, but also dizziness, chest pain, difficulty eating, left knee pain, possible additional emotional component Plan: - Pain control with PO and IV meds - PT, WBAT, ROM knee - Dispo planning - Hospitalist consult pending regarding the patient's headache, dizziness - Aspirin 325 mg po bid x 4 weeks for DVT prophylaxis
--- NOTE | 2018-11-01 16:24 | PN ---
Subjective Date of Service: 11/01/18 Objective Active Medications: Acetaminophen (Tylenol Tab*) 975 mg PO Q8H CAROL Aspirin (Aspirin Tab*) 325 mg PO BID CAROL Bisacodyl (Dulcolax Supp*) 10 mg [place] DAILY PRN Cyclobenzaprine HCl (Flexeril Tab*) 10 mg PO TID PRN Diphenhydramine HCl (Benadryl Iv*) 25 mg IV Q6H PRN Diphenhydramine HCl (Benadryl Po*) 25 mg PO Q6H PRN Docusate Sodium (Colace Cap*) 100 mg PO BID CAROL Lactated Ringer's (Lactated Ringers 1000 Ml Bag*) 1,000 mls @ 100 mls/hr IV PER RATE CAROL Lactulose (Lactulose*) 30 ml PO Q6H PRN Magnesium Hydroxide (Milk Of Magnesia Liq*) 30 ml PO BID CAROL Magnesium Hydroxide (Milk Of Magnesia Liq*) 30 ml PO Q6H PRN Morphine Sulfate (Morphine 4 Mg/Ml Vial (1 Ml)) 2 mg IV Q2H PRN Ondansetron HCl (Zofran Inj*) 4 mg IV Q6H PRN Ondansetron HCl (Zofran Odt Tab*) 4 mg PO Q6H PRN Oxycodone HCl (Roxycodone Tab*) 10 mg PO Q4H PRN Oxycodone/Acetaminophen (Percocet 5/325 Tab*) 1 tab PO Q4H PRN Oxycodone/Acetaminophen (Percocet 5/325 Tab*) 2 tab PO Q3H PRN Polyethylene Glycol/Electrolytes (Miralax*) 17 gm PO DAILY PRN Tramadol HCl (Ultram*) 50 mg PO Q6H PRN Trazodone HCl (Desyrel Tab*) 25 mg PO BEDTIME PRN Vital Signs - 8 hr 11/01/18 11/01/18 11/01/18 10:11 11:41 13:02 Temperature 98.7 F Pulse Rate 72 Respiratory 18 20 18 Rate Blood Pressure 162/82 (mmHg) O2 Sat by Pulse 96 Oximetry 11/01/18 15:10 Temperature 98.8 F Pulse Rate 95 Respiratory 18 Rate Blood Pressure 156/93 (mmHg) O2 Sat by Pulse 94 Oximetry Oxygen Devices in Use Now: None Result Diagrams: 11/01/18 05:02 10/30/18 04:59 Assess/Plan/Problems-Billing Assessment: Mr. Nova is a 58 yo M with no significant PMH who was admitted on 10/29/18 for a left total knee arthoplasty, Hospital Medicine has been consulted for hypertension. - Patient Problems (1) S/P total knee arthroplasty (2) Hypertension Current Visit: Yes Status: Acute Code(s): I10 - ESSENTIAL (PRIMARY) HYPERTENSION SNOMED Code(s): 23054953 (3) DVT prophylaxis
[2018-11-01] MEDS: amLODIPine TAB* 5 MG PO SCH (18:16)
--- NOTE | 2018-11-01 21:33 | CONS ---
HOSPITAL MEDICINE CONSULTATION REPORT: DATE OF CONSULTATION: 11/01/18 ATTENDING PHYSICIAN: Dr. Severino. CONSULTING PHYSICIAN: Dr. Boucher (dictation provided by Bridgette Britt NP). REASON FOR CONSULT: Concern the patient with headache and elevated blood pressure systolically to 150s. HISTORY OF PRESENT ILLNESS: Mr. Nova speaks Indonesian only and translation is obtained through our translation services today at the bedside. Mr. Nova states that he was in his normal state of health prior to coming into the hospital for his total knee arthroplasty, which happened on 10/29/[address] Severino. The patient has reportedly done fairly well in the postoperative period. However, on 10/31/18, the patient reported that he felt short of breath and had chest pain and that he was also feeling nauseated. For that reason, the patient did have a CTA of the chest to rule out pulmonary embolism, which was negative for any acute findings including a pulmonary embolism. He had an EKG, which showed a normal sinus rhythm. The patient continued today to complain of difficulty catching his breath and headache. It was noted that his blood pressure has been running slightly high since being here, was systolically 130s to 160s and therefore hospital medicine was called regarding consultation. Again, on review of this with Mr. Nova today, he states that yes he does have a sensation that is difficult for him to catch his breath. He denies chest pain. He states he has a headache and that he has knee pain but no other complaints. PAST MEDICAL HISTORY: 1. Gout. 2. Osteoarthritis. 3. Cervical radiculopathy following with Dr Fagan outpatient. MEDICATIONS: Outpatient: 1. Aleve. 2. Tylenol. ALLERGIES: No known drug allergies. FAMILY HISTORY: Reviewed. Noncontributory. SOCIAL HISTORY: No prior alcohol, tobacco, or drug use. REVIEW OF SYSTEMS: A 14-point review of systems was completed with Mr. Nova and all other than those not mentioned above were negative. PHYSICAL EXAM: Vital Signs: Temperature 98.8, pulse rate 95, respiratory rate 18, O2 saturation 94% on room air, blood pressure 156/93. General: Mr. Nova is sitting up in the bed. He is no acute distress. Neuro: He is awake, alert , oriented x3. He moves all extremities equally. There is no facial asymmetry or focal weakness. Extraocular movements are intact. Heart: S1, S2. No murmur, rub, or gallop and regular. Lungs are clear to auscultation bilaterally. No accessory muscle use and good aeration. The abdomen is soft, nontender. Bowel sounds positive in all 4 extremities. No cyanosis or edema. Skin is intact. DIAGNOSTIC STUDIES/LAB DATA: Sodium 137, potassium 4.2, chloride 102, serum bicarbonate 27, BUN 21, creatinine 0.99, glucose 133. Hemoglobin 13.4, hematocrit 40. Again, chest CTA is as read above and the EKG shows a sinus rhythm. ASSESSMENT: Mr. Nova is a 58-year-old male with a past medical history of gout and osteoarthritis only, who presented to the hospital on 10/29/18 for a planned total knee arthroplasty. In the postoperative period, he complained intermittently of chest pain, difficulty catching his breath, headache and has been noted to have an elevated blood pressure. RECOMMENDATIONS: Our recommendations are as follows: 1. Shortness of breath. The patient has already had a CTA of the chest, which was negative and an EKG which was negative. I will repeat the EKG now and also check a troponin. He does not appear to be in any acute distress. 2. Headache. I plan to use Tylenol p.r.n. He has no focal neurological deficits. We will treat blood pressure as per below. 3. Hypertension. The patient states that he has never had a history of hypertension, but blood pressure has been running consistently higher more so in the 150s and 160s systolically. Plan to start amlodipine now. I will note that he has multiple voltage criteria for LVH. Perhaps, he has had some undocumented hypertension. 4. Status post knee replacement management per Ortho. 5. Code status: Full code. TIME SPENT: Approximately 60 minutes was spent on the consultation of this patient, more than half of the time was spent with the patient at the bedside reviewing the events leading up to this hospitalization and during his hospitalization performing physical examination, and reviewing my plan of care. BRIDGETTE BRITT, CHARU [id number]/[facility] #: [id number] M[facility]ICORDIA HOSPITALAlexandrea
[2018-11-02] MEDS: Acetaminophen TAB* 325 MG PO SCH ×3 (00:35→17:02)
[2018-11-02 05:57] LABS: Hematocrit 46 % (42-52); Hemoglobin 15.2 g/dL (14.0-18.0); Mean Platelet Volume 10.1 fL (7.4-10.4); Platelet Count 236 10^3/uL (150-450)
[2018-11-02] MEDS: Docusate CAP* 100 MG PO SCH ×2 (08:40→21:09)
[2018-11-02] MEDS: amLODIPine TAB* 5 MG PO SCH (08:40)
[2018-11-02] MEDS: Aspirin TAB* 325 MG PO SCH ×2 (08:40→21:09)
[2018-11-02] MEDS: oxyCODONE/Acetamin 5/325 MG* TAB PO PRN ×3 (08:41→17:02)
[2018-11-02] MEDS: Magnesium Hydroxide LIQ* 30 ML UDC PO SCH ×2 (08:44→21:09)
--- NOTE | 2018-11-02 10:08 | PN ---
Progress Note - Progress Note Date of Service: 11/02/18 SOAP: Subjective: The patient has had slightly elevated BPs and has complained of headache and left knee pain. Today he states that the headache is improved. Complains of knee pain but that has improved. Denies any chest pain or SOB. Objective: NAD. Non-toxic appearing. NAD LLE: - Incisions c/d/i - NVID - Calf is soft and non tender - + df/pf Vital Signs Temp 98.7 F 11/02/18 07:47 Pulse 94 11/02/18 07:47 Resp 18 11/02/18 08:41 BP 143/82 11/02/18 07:47 Pulse Ox 95 11/02/18 08:00 Intake & Output 11/01/18 11/02/18 11/02/18 18:59 06:59 18:59 Intake Total 620 480 Output Total 875 250 0 Balance -255 230 0 Intake: Oral 620 480 Output: Urine 875 250 0 Other: Date of Last Bowel 11/02/2018 Movement # Bowel Movements 1 Estimated Stool Amount Medium Assessment: POD 4 uni medial knee arthroplasty Postoperative variety of complaints- persistent headache, but also dizziness, chest pain, difficulty eating, left knee pain, possible additional emotional component Plan: - Pain control with PO and IV meds - PT, WBAT, ROM knee - Dispo planning - Hospitalist managing the HTN - Aspirin 325 mg po bid x 4 weeks for DVT prophylaxis
--- NOTE | 2018-11-02 11:51 | PN ---
Subjective Date of Service: 11/02/18 Interval History: Mr Nova continues to complain of a headache. He also complains of pain along his left neck and left arm. He confirms that this has been a long-standing problem. He is noted to have had a cervical spine CT and MRI back in June and July respectively. Dr Borden notes that he has been following with Dr Fagan for cervical radiculopathy with consideration of neck surgery as well. Mr Nova notes that his knee continues to hurt but it is not worse. He was able to walk with PT today. Objective Active Medications: Acetaminophen (Tylenol Tab*) 975 mg PO Q8H CAROL Amlodipine Besylate (Norvasc Tab*) 5 mg PO DAILY CAROL Aspirin (Aspirin Tab*) 325 mg PO BID CAROL Bisacodyl (Dulcolax Supp*) 10 mg [place] DAILY PRN Cyclobenzaprine HCl (Flexeril Tab*) 10 mg PO TID PRN Diphenhydramine HCl (Benadryl Po*) 25 mg PO Q6H PRN Docusate Sodium (Colace Cap*) 100 mg PO BID CAROL Lactulose (Lactulose*) 30 ml PO Q6H PRN Magnesium Hydroxide (Milk Of Magnesia Liq*) 30 ml PO BID CAROL Magnesium Hydroxide (Milk Of Magnesia Liq*) 30 ml PO Q6H PRN Ondansetron HCl (Zofran Odt Tab*) 4 mg PO Q6H PRN Oxycodone HCl (Roxycodone Tab*) 10 mg PO Q4H PRN Oxycodone/Acetaminophen (Percocet 5/325 Tab*) 1 tab PO Q4H PRN Oxycodone/Acetaminophen (Percocet 5/325 Tab*) 2 tab PO Q3H PRN Polyethylene Glycol/Electrolytes (Miralax*) 17 gm PO DAILY PRN Tramadol HCl (Ultram*) 50 mg PO Q6H PRN Trazodone HCl (Desyrel Tab*) 25 mg PO BEDTIME PRN Vital Signs: Temp Pulse Resp BP Pulse Ox 98.1 F 96 16 125/79 95 11/02/18 11:21 11/02/18 11:21 11/02/18 11:21 11/02/18 11:21 11/02/18 11:21 Oxygen Devices in Use Now: None Appearance: Male lying in bed in NAD Eyes: No Scleral Icterus Neck: Trachea Midline Respiratory: Symmetrical Chest Expansion and Respiratory Effort, Clear to Auscultation Cardiovascular: NL Sounds; No Murmurs; No JVD, No Edema Abdominal: NL Sounds; No Tenderness; No Distention Extremities: No Edema Skin: No Rash or Ulcers Neurological: Alert and Oriented x 3, NL Muscle Strength and Tone Result Diagrams: 11/02/18 04:56 10/30/18 04:59 Assess/Plan/Problems-Billing Assessment: Mr. Nova is a 58 yo M with no significant PMH who was admitted on 10/29/18 for a total knee arthroplasty, Hospital Medicine has been consulted regarding hypertension. - Patient Problems (1) S/P total knee arthroplasty Comment: - Management per ortho - Anticipate discharge to [facility] tomorrow (2) Hypertension Comment: - BP well controlled on amlodipine (3) Headache Comment: - No neurological deficit - Suspect related to chronic neck pain, has follow up already with Dr Fagan - Recommend using flexeril, has not had since he has been here (4) Shortness of breath Comment: - Patient describes difficulty breathing - Is not hypoxic or tachypnic - CTA chest neg, EKG neg, trop neg - No further workup indicated (5) DVT prophylaxis Comment: - Aspirin per ortho Status and Disposition: Inpatient, Hospital Medicine will sign off for how but please do not hesitate to contact us with further questions or concerns
[2018-11-02] MEDS: Cyclobenzaprine TAB* 10 MG PO PRN (18:23)
[2018-11-02] MEDS: oxyCODONE TAB* 5 MG TAB PO PRN (21:09)
[2018-11-03] MEDS: Acetaminophen TAB* 325 MG PO SCH ×3 (00:33→16:55)
[2018-11-03] MEDS: oxyCODONE/Acetamin 5/325 MG* TAB PO PRN ×3 (03:50→16:53)
[2018-11-03 06:19] LABS: Hematocrit 46 % (42-52); Mean Platelet Volume 9.5 fL (7.4-10.4); Platelet Count 262 10^3/uL (150-450)
[2018-11-03] MEDS: Docusate CAP* 100 MG PO SCH (09:04)
[2018-11-03] MEDS: Aspirin TAB* 325 MG PO SCH (09:05)
[2018-11-03] MEDS: amLODIPine TAB* 5 MG PO SCH (09:05)
[2018-11-03] MEDS: Magnesium Hydroxide LIQ* 30 ML UDC PO SCH (09:07)
--- NOTE | 2018-11-03 10:02 | PN ---
Progress Note - Progress Note Date of Service: 11/03/18 SOAP: Subjective: []Pt seen at bedside. Knee remains painful, though tolerable. Continued headache as well as left shoulder pain unchanged from previous. Has reported SOB throughout stay, not hypoxic or tachypnic and EKG, trop, CTA without concerning findings and medicine has signed off. No new complaints today. Objective: []Gen: NAD, laying comfortably in bed LLE: Left knee dressing changed, incision CDI, thigh soft, DF/PF intact, DP2+, Assessment: []POD 5 L uni medial knee arthroplasty Plan: [] WBAT, PT/OT Bed offer from [address], pending workers comp auth Aspirin 325 mg po bid x 4 weeks for DVT prophylaxis Vital Signs Temp 97 F 11/03/18 08:00 Pulse 97 11/03/18 08:00 Resp 18 11/03/18 09:06 BP 136/87 11/03/18 08:00 Pulse Ox 97 11/03/18 08:00 Intake & Output 11/02/18 11/03/18 11/03/18 18:59 06:59 18:59 Intake Total 760 720 360 Output Total 400 265 Balance 360 455 360 Intake: Oral 760 720 360 Output: Urine 400 265 Other: Estimated Void Large Date of Last Bowel 11/03/2018 Movement # Bowel Movements 1 Estimated Stool Amount Medium # Voids 1 Laboratory Last Values Hgb 15.0 g/dL (14.0-18.0) 11/03/18 06:11 Hct 46 % (42-52) 11/03/18 06:11 Plt Count 262 10^3/uL (150-450) 11/03/18 06:11 MPV 9.5 fL (7.4-10.4) 11/03/18 06:11 Sodium 137 mmol/L (135-145) 10/30/18 04:59 Potassium 4.2 mmol/L (3.5-5.0) 10/30/18 04:59 Chloride 102 mmol/L (101-111) 10/30/18 04:59 Carbon Dioxide 27 mmol/L (22-32) 10/30/18 04:59 Anion Gap 8 mmol/L (2-11) 10/30/18 04:59 BUN 21 mg/dL (6-24) 10/30/18 04:59 Creatinine 0.99 mg/dL (0.67-1.17) 10/30/18 04:59 Est GFR ( Amer) 93.6 (>60) 10/30/18 04:59 Est GFR (Non-Af Amer) 77.4 (>60) 10/30/18 04:59 BUN/Creatinine Ratio 21.2 (8-20) H 10/30/18 04:59 Glucose 133 mg/dL (70-100) H 10/30/18 04:59 Calcium 9.2 mg/dL (8.6-10.3) 10/30/18 04:59 Troponin I 0.01 ng/mL (<0.04) 11/01/18 20:01
--- NOTE | 2018-11-03 13:00 | DS ---
Orthopedic Discharge Summary - Discharge Summary Date of Admission:10/29/18 Date of Discharge: 11/03/18 Date of Surgery: 10/29/18 Attending Orthopedic Provider: Dr Severino Pre-operative Diagnosis: left knee osteoarthritis Operative Procedure: left unilateral medial knee arthroplasty Disposition of Patient: [facility] Condition of Patient: stable History: OSMAR JAUREGUI is a 58 year old M with years of increasingly severe left knee pain. Patient has failed conservative management and has elected to undergo a left unilateral medial knee replacement Hospital Course: OSMAR was admitted to [facility] on 10/29/18. Patient underwent a left unilateral medial knee replacement without complication followed by a brief recovery in PACU and transfer to the Short Stay Surgical Unit in stable condition. Our hospitalist service, physical therapy and occupational therapy also participated in this patients care. Post- op day 1: patient was alert and in no acute distress. Dressing was clean, dry and intact. Operative extremity dorsiflexion and plantarflexion intact, sensation intact to light touch distally, DP2+. Daily starting POD2 dressing was changed, incision was clean, dry and intact. During his stay patient complained of headache, chest pain and shortness of breath. He was hypertensive and started on amlodipine 5 mg daily with good BP control thereafter. His EKG showed no WI, CTA showed no PE and troponins negative. Patient was deemed to be medically and orthopedically stable for discharge to [facility] . Home Medications Medication Instructions Recorded Confirmed Type Acetaminophen 325 - 650 mg PO Q4H PRN 10/16/18 10/29/18 History Aspirin TAB* [Aspirin 325 MG TAB*] 325 mg PO BID tab 10/30/18 Rx Cyclobenzaprine TAB* [Flexeril 10 10 mg PO TID PRN tab 10/30/18 Rx MG TAB*] Docusate CAP* [Colace Cap*] 100 mg PO BID cap 10/30/18 Rx oxyCODONE/Acetamin 5/325 MG* 1 tab PO Q4H PRN tab 10/30/18 Rx [Percocet 5/325 TAB*] oxyCODONE/Acetamin 5/325 MG* 2 tab PO Q3H PRN tab 10/30/18 Rx [Percocet 5/325 TAB*] amLODIPine TAB* [Norvasc 5 mg TAB*] 5 mg PO DAILY tab 11/03/18 Rx DISCHARGE INSTRUCTIONS: Weight Bearing as tolerated Wound Care: Keep dressing dry and intact until three days after surgery. OK to shower 3 days after surgery, no bathing/ swimming/ submerging wound. Use gentle soap, pat dry. Cover with gauze, LIDA wrap. Call Orthopedic office for increased drainage, redness, increased pain, or fever. Go to ER with shortness of breath, palpitations, or chest pain. Diet: Regular diet, increase fluids and fiber to prevent constipation. Continue to use stool softeners, call office if no bowel motion within 48 hours. Colace 100 mg take 1 tab two times a day as needed for constipation - Continue physical therapy and occupational therapy exercises as shown. - Outpatient physical therapy as soon as possible DVT prophylaxis: - Aspirin 325 mg 1 tab twice a day x 4 weeks post op DO NOT take naproxen/aleve or ibuprofen while on aspirin - Pain control with: Percocet 5/325 mg 1-2 tabs by mouth every 4-6 hours as needed for pain. Maximum of 10 tabs per day. hold for sedation and wean off as soon as pain allows Please note that percocet contains tylenol (acetaminophen). Maximum daily dose of tylenol is 4000 mg from all sources. Cyclobenzaprine 10 mg 1 tab every 8 hours as needed for pain/spasms Antibiotics required prior to any dental work. Call office for prescription FOLLOW UP: Follow up with Dr. Severino within 14-17 days post op, call for appointment, emelyn will be removed at this appointment. Please call our office with any questions or concerns ([phone]) Continue amlodipine 5 mg daily, follow up with your PCP within 1 week of discharge from [facility]
[2018-11-03 15:13] VITALS: BP 129/86
== END 2018-11-03 18:23 | disposition home or self-care (01) | DRG 302 ==
LOC: AA 10-29 07:10 → SSU 10-29 15:30
PROVIDERS: ADMIT Orthopaedic Surgery; ATTEND Orthopaedic Surgery
PROC: 8E0Y0CZ Robotic Assisted Procedure of Lower Extremity, Open Approach (ICD-10-PCS; 2018-10-29)
PROC: 0SRD0L9 Replacement of Left Knee Joint with Medial Unicondylar Synthetic Substitute, Cemented, Open Approach (ICD-10-PCS; principal; 2018-10-29 09:00)
DX: M17.12 Unilateral primary osteoarthritis, left knee (principal); M10.9 Gout, unspecified; M54.12 Radiculopathy, cervical region; I10 Essential (primary) hypertension; R51 Headache; R07.9 Chest pain, unspecified; Z87.891 Personal history of nicotine dependence; Z79.1 Long term (current) use of non-steroidal anti-inflammatories (NSAID); Z82.3 Family history of stroke
CPT/HCPCS: 36415; 71275; 80048; 84484; 85014; 85018; 85049; 93005; A9270-GY; C1776; J0690; J1100; J1170; J1240; J2250; J2405; J2704; J2795; J3010; Q9967